=== PATIENT | female | born 1995 | race African-American/Black ===

== ENCOUNTER → 2018-10-15 | Outpatient (CLI) | payer OTHER, MEDICAID, SELFPAY ==
[2018-09-04 15:09] VITALS: BMI 29.7
--- NOTE | 2018-10-15 12:17 | US_ITS ---
STUDY: ULTRASOUND TRANSVAGINAL CLINICAL: Female, 23 years old. Pelvic pain and irregular cycles. TECHNIQUE: Transvaginal COMPARISON: January 19, 2017 FINDINGS: Normal uterine size measuring 6.7 cm in maximal craniocaudal dimension. There are no myometrial masses. Normal endometrial thickness measuring 6.2 mm. There are no endometrial masses, and there is no fluid in the endometrial cavity. Normal uterine cervix. Normal right ovary, measuring 3.0 x 1.7 x 3.4 cm. There are peripherally located subcentimeter cysts. Normal left ovary, measuring 3.4 x 2.4 x 2.1 cm. There are peripherally located subcentimeter cysts. There is no free fluid in the pelvis. US/Transvaginal Non- IMPRESSION: Peripherally located subcentimeter cysts within the ovaries, in the appropriate clinical setting may be secondary to polycystic ovarian disease. Electronically Signed: Carolyn Lawson MD at 16:54 EDT Tel , Service support ,
--- NOTE | 2018-10-15 12:17 | US_ITS ---
STUDY: ULTRASOUND TRANSVAGINAL CLINICAL: Female, 23 years old. Pelvic pain and irregular cycles. TECHNIQUE: Transvaginal COMPARISON: January 19, 2017 FINDINGS: Normal uterine size measuring 6.7 cm in maximal craniocaudal dimension. There are no myometrial masses. Normal endometrial thickness measuring 6.2 mm. There are no endometrial masses, and there is no fluid in the endometrial cavity. Normal uterine cervix. Normal right ovary, measuring 3.0 x 1.7 x 3.4 cm. There are peripherally located subcentimeter cysts. Normal left ovary, measuring 3.4 x 2.4 x 2.1 cm. There are peripherally located subcentimeter cysts. There is no free fluid in the pelvis. US/Pelvic (Non ) IMPRESSION: Peripherally located subcentimeter cysts within the ovaries, in the appropriate clinical setting may be secondary to polycystic ovarian disease. Electronically Signed: Carolyn Lawson MD at 16:54 EDT Tel , Service support ,
== END | disposition home or self-care (01) ==
PROVIDERS: Family Provider Family Medicine; PCP Family Medicine; Referring Provider Obstetrics & Gynecology; Visit Provider Obstetrics & Gynecology
DX: G89.29 Other chronic pain (principal); R10.2 Pelvic and perineal pain
CPT/HCPCS: 76830; 76856; 93976

== ENCOUNTER 2018-11-14 12:15 | Day surgery (SDC) | payer OTHER, MEDICAID, SELFPAY ==
[2018-09-04 15:09] VITALS: BMI 29.7
[2018-11-04 16:18] VITALS: BMI 29.7
--- NOTE | 2018-11-06 05:30 | HP.PCM_ITS ---
- Problem List (1) Irregular menses Status: Acute (2) Vaginal burning Status: Acute (3) Chronic pelvic pain in female Status: Chronic Comment: failed depo provera and flexeril. discussed options and plan TVH BS History and Physical Date of Admission: 11/14/18 ADDENDUM Addendum entered and electronically signed by Jane Jj MD 11/05/18 04:51: Assessment & Plan Problems 1. Chronic pelvic pain in female R10.2; G89.29 failed depo provera and flexeril. discussed options and plan TVH BS 2. Irregular menses N92.6 Plan - Jane Jj MD discussed options for patient including laparoscopic evaluation but due to quality and persistence of pain despite hormonal therapy, recommend proceeding with definitive treatment with TVH BS. patient agrees and understands permanence, she has already had sterilization for 3 years and has no regrets about this and neither does her partner. discussed surgical risks including risks of anesthesia, infection, bleeding, injury to bowel, bladder or blood vessels, and patient wishes to proceed with surgery. 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 Is patient in pain?: No Allergies Penicillins Allergy (Verified 11/04/18 15:25) Hives Medications medroxyprogesterone 150 mg/mL intramuscular suspension 150 mg IM [id number] #1 ml 09/04/18 [Rx Confirmed 11/04/18] cyclobenzaprine 10 mg tablet 10 mg PO TID PRN #30 tab 10/09/18 [Rx Confirmed 11/04/18] Is last menstrual period known: No Post menopausal: No Patient : No : No PFSH Surgical History History of open heart surgery (Acute) History of tubal ligation (Acute) Family History (Updated 09/04/18 @ 14:47 by Magy Germain) Other Breast cancer Social History (Updated 11/05/18 @ 04:50 by Jane Jj MD) household members: spouse housing: house number of children: 2 current occupational status: unemployed current occupational exposures/hazards: No pets and animals: Yes history of recent travel: No Smoking Status: Never smoker second hand exposure: No alcohol intake: current alcohol intake frequency: holidays/special occasions only Alcohol type: beer substance use type: does not use caffeine: No what type of physical activity do you participate in: walking frequency: 5-6 times per week duration: 45-60 minutes/day seatbelt use: always do you feel safe at home: Yes additional social history: [employer] at [employer] Patient does not work HPI pre op soap/folder: Details: STEVE PINEDA is a 23 year old who presents for preop visit for pelvic pain and dyspareunia. she will have pain with intercourse and cramping for days aftwards. she has severe cramping and bloating with cycles denies any pelvic infections in the past. she is having so much pain most days and it interferes with quality of life and quality of relationship. Pregancy History 2 Elective abortions Hx Para 2 Spontaneous abortions Hx # Term Pregnancies Ectopic pregnancies Hx # Pregnancies Multiple births # of living children 2 Past Pregnancies Del. Date Name GA/Weeks Outcome Route Bth Weight Gen Labor Lgth Anesthesia Del Locatn Provider FOB 01/12/14 Chris 38 live - full term 6lbs 1oz Female epidural [place] 11/22/15 Florina 38 live - full term 6lbs Fema le epidural WC DOUG Delivery Date: 01/12/14 On 09/06/17 @ 12:57 Hayley Escalante Pre term labor Delivery Date: 11/22/15 On 09/06/17 @ 12:59 Hayley Escalante HTN ROS Const Constitutional: Denies fatigue, fever(s), headache(s), increased appetite, poor appetite, weight gain or weight loss ENT ENT: Denies dry mouth Cardio Card: Denies chest pain Resp Resp: Denies cough or dyspnea GI GI: Reports as per HPI; denies abdominal pain, constipation, nausea or vomiting : Reports as per HPI; denies difficulty urinating, painful urination, blood in urine, nipple discharge, pelvic pain, urinary frequency, urinary incontinence, urinary hesitancy, urinary urgency, vaginal discharge, vaginal dryness, vaginal odor, vaginal itching or other Musc Musc: Denies joint pain, back pain or muscle weakness Skin Skin/Breast: Denies hair loss, change in hair, dry skin, breast lump, breast pain, breast skin changes or nipple discharge Neuro Neuro: Reports system reviewed and no additional complaints, except as docu Psych Psych: Reports system reviewed and no additional complaints, except as docu Endo Endo: Denies cold intolerance, excessive sweating, heat intolerance or increased thirst Abundio/Lymph Hematologic/Lymphatic: Denies easy bleeding, Denies easy bruising, Denies enlarged lymph nodes Exam Const General: cooperative, healthy appearing, comfortable, no acute distress, well developed Nutritional Appearance: average body habitus Orientation: alert [facility] Head: normal to inspection, normocephalic Ears: hearing grossly normal bilaterally, external ears normal Nose: external nose normal, nares normal Face and sinus: normal facial exam Neck Neck: normal visual inspection, no lymphadenopathy, trachea midline Thyroid: thyroid normal Chest Chest palpation & inspection: normal inspection of the chest Resp Effort & Inspection: normal respiratory effort Auscultation: clear to auscultation bilaterally Cardio Rate: regular rate Rhythm: regular rhythm GI Inspection: normal to inspection, non-distended Palpation: soft, no hepatosplenomegaly Musc Other: gross motor intact no deficits, full bilateral strength Skin General: no rashes or lesions noted Neuro General: alert, awake, moves all extremities, no focal motor deficits Motor: muscle tone normal throughout Extrem General: normal to inspection, no pedal edema Psych Appearance: grossly normal Mental Status: mental status grossly normal Affect: normal affect Speech and Movement: speech and movement normal Assessment & Plan Problems 1. Chronic pelvic pain in female R10.2; G89.29 failed depo provera and flexeril. discussed options and plan TVH BS 2. Irregular menses N92.6 Plan discussed options for patient including laparoscopic evaluation but due to quality and persistence of pain despite hormonal therapy, recommend proceeding with definitive treatment with TVH BS. patient agrees and understands permanence, she has already had sterilization for 3 years and has no regrets about this and neither does her partner. discussed surgical risks including risks of anesthesia, infection, bleeding, injury to bowel, bladder or blood vessels, and patient wishes to proceed with surgery. Coding Level of Care Code Off vis,est,level 4 Diagnoses Chronic pelvic pain in female R10.2; G89.29 Irregular menses N92.6
[2018-11-14] VITALS (15 sets, daily range): BP systolic 101–130; BP diastolic 46–79; PULSE 88–107; RESP 12–16; TEMP 35.8–37; O2SAT 98–110; BMI 33.1
[2018-11-14] MEDS: Lactated Ringers 1,000 ML 40 ML IV (07:00)
[2018-11-14] MEDS: Lactated Ringers 1,000 ML 70 ML IV ×2 (07:00→17:26)
[2018-11-14] MEDS: Gabapentin 600 MG Tablet PO (07:00)
[2018-11-14] MEDS: dexAMETHasone 10 MG/ML Vial 8 MG IV (07:00)
[2018-11-14 12:41] LABS: Internal QC Validated? YES +Cl - CLEAR BKGD; Pregnancy, Urine Negative Negative
--- NOTE | 2018-11-14 12:46 | EKG12_ITS ---
Test Reason : PRE OP Blood Pressure : / mmHG Vent. Rate : 084 BPM Atrial Rate : 084 BPM P-R Int : 148 ms QRS Dur : 080 ms QT Int : 352 ms P-R-T Axes : 053 020 044 degrees QTc Int : 415 ms Normal sinus rhythm Normal ECG When compared with ECG of 09-NOV-2015 18:05, No significant change was found Confirmed by MEETA GRIFFIN, JOHN ([id number]), manager editorial OSBALDO SEXTON ([id number]) on 11/19/2018 9:07:23 AM Referred By: Jane Jj Confirmed By:QUYNH TIM MD
[2018-11-14 12:47] LABS: Hematocrit 38.5 % (37-47); Hemoglobin 12.4 g/dL (12.0-15.0); Mean Corp Hgb Conc 32.2 g/dL (32-36); Mean Corpuscular Hgb 26.2 pg (27.0-32.0); Mean Corpuscular Volume 81.4 fL (81-99); Mean Platelet Vol. 8.7 fl (6.2-12.0); Platelet Count 303 K/mm3 (150-450); RBC Distribution Width CV 12.9 % (11.6-14.6); RBC Distribution Width SD 38.2 fl (35.1-43.9); Red Blood Count 4.73 M/mm3 (4.2-5.4); White Blood Count 7.4 K/mm3 (4.4-11.0)
--- NOTE | 2018-11-14 13:00 | HYST_PTH ---
PATIENT: STEVE PINEDA [place] [facility] [place][id number] AGE/SX: 23/F ROOM: RE11/14/[address]: Dr. Jane Jj MD : 1995 BED: DIS: 11/15/2018 SPEC #: [id number] RECD: 11/14/18 15:29 STATUS: PAKO TONE #: [id number] MARCELO: 11/14/18 13:[address]: Jane Jj DEPT: SURGICAL PATHOLOGY RECD BY: Hayden Ward ENTERED: 11/15/18 08:32 SP TYPE: HYSTERECT OTHR DR: Dr. Andrzej Catherine MD Tissues: Uterus, NOS Procedures: Surgery Specimen Level V HEADER OPERATION: Vaginal hysterectomy PRE-OP DIAGNOSIS: Chronic pelvic pain R102, G89.29; irregular menses N92.6 TISSUE SUBMITTED: Uterus and cervix MICROSCOPIC DIAGNOSIS Uterus, hysterectomy: Cervix - mild chronic inflammation. Endometrium - weakly proliferative endometrium * stromal hyperplasia consistent with exogenous hormonal effect with degenerative change. AM:edward 11/18/18 COMMENT Case has been reviewed in consultation with Dr. Cornell who concurs with the above diagnosis. IDC:SJ MICROSCOPIC DESCRIPTION Slides are reviewed. GROSS DESCRIPTION Received in fixative is one container labeled with the patient's name and designated uterus. The specimen consists of a uterus with attached cervix without fallopian tubes and ovaries measuring 8.5 x 4.5 x 3.3 cm and weighing 49 gm. The ectocervix is grossly unremarkable. The cervical os is oval in contour. The endocervical canal measures 3.3 cm in length and is grossly unremarkable. The triangular endometrial cavity measures 3.2 x 2.4 cm. The endometrium is light delgado, velvety and glistening and measures up to 0.2 cm in thickness. The myometrium measures 1.5 cm in average thickness and is free of mass lesions. Head [employer] Teacher sections are submitted in six cassettes as follows: 1 - anterior cervix, 2??posterior cervix, 3 & 4 - anterior uterine wall, 5 & 6 - posterior uterine wall. / DAISY:edward 11/15/18 TC:3 CPT: 57381
[2018-11-14 13:01] LABS: Anion Gap 5 (5-15); BUN 10 mg/dL (7-18); BUN/Creat Ratio 10.9 RATIO (10-20); Calcium,Total 9.1 mg/dL (8.5-10.1); Chloride 106 mmol/L (98-107); Creatinine, Serum 0.92 mg/dL (0.55-1.02); EST Glomerular Filtration Rate 80 mL/min (>60); Est Glom Filt Rate - Afr Amer 97 mL/min (>60); Estimated Creatinine Clearance 74.58 ml/min; Glucose 76 mg/dL (74-106); Potassium 3.8 mmol/L (3.5-5.1); Sodium Level 139 mmol/L (136-145)
[2018-11-14] MEDS: Acetaminophen 500 MG Tablet 1000 MG PO ×3 (13:10→23:23)
[2018-11-14] MEDS: Phenazopyridine 95 MG Tablet 190 MG PO (13:10)
[2018-11-14] MEDS: Celecoxib 200 MG Capsule 400 MG PO (13:11)
[2018-11-14] MEDS: Scopolamine 1mg/72hr Patch 1 PATCH TRANSDERM. (13:11)
[2018-11-14] MEDS: Magnesium Sulfate 4gm/100mL 4 GM/100 ML IV.SOLN. IV (13:12)
[2018-11-14] MEDS: Enoxaparin 40 MG/0.4 ML Syringe SC (13:13)
[2018-11-14] MEDS: Vasopressin 20 UNITS/ML Vial (14:11)
[2018-11-14 14:31] LABS: Bedside Glucose 70 mg/dL (70-110)
--- NOTE | 2018-11-14 14:55 | PCM.OPRPT ---
Problem List (1) Irregular menses Status: Acute (2) Vaginal burning Status: Acute (3) Chronic pelvic pain in female Status: Chronic Comment: failed depo provera and flexeril. discussed options and plan TVH BS Report of Operation Date of Procedure: 11/14/18 Pre-Operative Diagnosis: chronic pelvic pain Post-Operative Diagnosis: same Surgery/Procedure Performed:: tvh Description of Surgical Findings:: normal uterus ovaries financial planning consultant: Korin Arellano Type of Anesthesia:: General Special Medications: none Specimen's removed: uterus Drains: cano Estimated Blood Loss (mL): 100 Fluids Replaced: 200 crystalloid Description of Procedure: Patient was taken to the operating room and was placed under general anesthesia was prepped and draped in normal sterile fashion in the dorsal lithotomy position. Preoperative antibiotics and SCDs and Cano catheter was placed inside the bladder. Weighted speculum was placed in the vagina and the anterior and posterior lip of the cervix was grasped with 2 Nathaniel clamps and circumferentially injected with dilute vasopressin. A circumferential incision was made with a scalpel and the posterior cul-de-sac was entered into sharply and a longneck speculum was placed. The anterior cul-de-sac was also dissected down and entered into sharply and the uterosacral ligaments were clamped cut and suture ligated bilaterally followed by the cardinal ligaments which were Clamped cut and suture ligated bilaterally with 0 Monocryl. The uterus serially descended and progressive bites were taken bilaterally up to the level of the utero-ovarian ligament bilaterally which was clamped transected and double ligated with 0 Monocryl suture and 0 Vicryl free tie. Bilateral ovaries were well visualized and noted be within normal limits. Excellent hemostasis was noted. Posterior peritoneum was reapproximated with 2-0 Vicryl and a modified Moreland stitch was placed through the posterior vaginal cuff and bilateral uterosacral ligaments across the posterior cul-de-sac skimming along to provide apical support to the vagina. The vagina was closed with [id number] 0 Vicryl pop offs including the posterior and anterior peritoneum in the reapproximation. Excellent hemostasis was noted. All instruments removed from the vagina clear urine was noted at the end of the procedure and patient was awoken and taken recovery in stable condition. Grafts/Implants Used: none - Complications none - Admit VTE Documentation VTE Present on Admission: No VTE Mechan Device Prophylaxis: SCD's Multi Select Codes - Urinary/Genital Urinary/Genital CPT Codes: 72437 TVH <250 gr uterus
[2018-11-14 15:36] LABS: Bedside Glucose 125 mg/dL (70-110)
--- NOTE | 2018-11-14 15:40 | SUR.PHASEI ---
OXygen mask on @ 1515 can be taken off at 1715 Blood Glucose 125 in PACU
[2018-11-14] MEDS: 0.9% NaCl Peripheral Flush Adult/Peds IV (17:26)
[2018-11-14] MEDS: Ketorolac 30 MG/ML Syringe IV ×2 (17:26→23:23)
[2018-11-14 17:40] LABS: Absolute Lymphocyte Count 1.03 X10^3/uL (0.83-4.51); Basophil# 0.02 X10^3/uL; Basophil% 0.2 % (0-1); Eosinophil# 0.01 X10^3/uL; Eosinophils% 0.1 % (0-5); Hematocrit 36.6 % (37-47); Hemoglobin 11.9 g/dL (12.0-15.0); Lymphocyte # 1.03 X10^3/ul (4.0); Lymphocyte % 8.4 % (19-41); Mean Corp Hgb Conc 32.5 g/dL (32-36); Mean Corpuscular Volume 80.1 fL (81-99); Mean Platelet Vol. 8.9 fl (6.2-12.0); Monocyte# 0.13 X10^3/uL; Monocyte% 1.1 % (0-10); NRBC Flagged by Analyzer 0 % (0-5); Neutrophil % 89.9 % (47-70); Platelet Count 260 K/mm3 (150-450); RBC Distribution Width CV 12.8 % (11.6-14.6); RBC Distribution Width SD 36.5 fl (35.1-43.9); Red Blood Count 4.57 M/mm3 (4.2-5.4); White Blood Count 12.2 K/mm3 (4.4-11.0)
[2018-11-14] MEDS: Ondansetron ODT 4 MG Tablet PO (20:11)
[2018-11-14] MEDS: oxyCODONE 5 MG Tablet PO (20:11)
[2018-11-14] MEDS: Docusate Sodium 100 MG Capsule PO (23:23)
[2018-11-15] MEDS: Acetaminophen 500 MG Tablet 1000 MG PO ×2 (05:18→13:32)
[2018-11-15] MEDS: Ketorolac 30 MG/ML Syringe IV ×2 (05:18→12:20)
[2018-11-15 05:22] VITALS: BP 110/67; PULSE 91; RESP 16; TEMP 36.7; O2SAT 95
[2018-11-15 06:21] LABS: Hemoglobin 11.8 g/dL (12.0-15.0); Mean Corp Hgb Conc 31.9 g/dL (32-36); Mean Corpuscular Hgb 25.5 pg (27.0-32.0); Mean Corpuscular Volume 80.1 fL (81-99); Mean Platelet Vol. 9.3 fl (6.2-12.0); Platelet Count 305 K/mm3 (150-450); RBC Distribution Width CV 13.3 % (11.6-14.6); RBC Distribution Width SD 38.3 fl (35.1-43.9); Red Blood Count 4.62 M/mm3 (4.2-5.4); White Blood Count 9.3 K/mm3 (4.4-11.0)
[2018-11-15 07:54] VITALS: BP 109/63; PULSE 97; RESP 16; TEMP 36.7; O2SAT 97
[2018-11-15] MEDS: Docusate Sodium 100 MG Capsule PO (10:27)
[2018-11-15] MEDS: Enoxaparin 40 MG/0.4 ML Syringe SC (10:27)
--- NOTE | 2018-11-15 11:51 | PCM.PN.OB ---
Subjective: doing well pain controlled - Physical Exam General: Alert, Oriented x3 Vital Signs Temp Pulse Resp BP Pulse Ox 98.0 F 97 16 109/63 97 11/15/18 07:54 11/15/18 07:54 11/15/18 07:54 11/15/18 07:54 11/15/18 07:54 Oxygen Flow Rate (L/min) 6 Oxygen Delivery Method Room Air Weight: 181 lb 3.52 oz Body Mass Index (BMI) 33.1 Finger Stick Blood Glucose 125 Intake and Output for Last 24 Hours 11/13/18 11/14/18 11/15/18 23:59 23:59 23:59 Intake Total 1063.83 / 1063.83 980.67 / 980.67 Output Total 240 / 240 2200 / 2200 Balance 823.83 / 823.83 -1219.33 / -1219.33 Laboratory Tests Past 24 Hrs 11/14/18 11/14/18 11/14/18 12:21 12:31 12:31 WBC 7.4 RBC 4.73 Hgb 12.4 Hct 38.5 MCV 81.4 MCH 26.2 L MCHC 32.2 RDW Std Deviation 38.2 RDW Coeff of Jd 12.9 Plt Count 303 MPV 8.7 Immature Gran % (Auto) Neut % (Auto) Lymph % (Auto) [place] % (Auto) Eos % (Auto) Baso % (Auto) Absolute Neuts (auto) Absolute Lymphs (auto) Nucleated RBC % Sodium 139 Potassium 3.8 Chloride 106 Carbon Dioxide 28.0 Anion Gap 5 BUN 10 Creatinine 0.92 Estim Creat Clear Calc 74.58 Est GFR (MDRD) Af Amer 97 Est GFR (MDRD) Non-Af 80 BUN/Creatinine Ratio 10.9 Glucose 76 Calcium 9.1 Urine Test Negative Blood Type Antibody Screen 11/14/18 11/14/18 11/15/18 13:12 17:30 05:10 WBC 12.2 H 9.3 RBC 4.57 4.62 Hgb 11.9 L 11.8 L Hct 36.6 L 37.0 MCV 80.1 L 80.1 L MCH 26.0 L 25.5 L MCHC 32.5 31.9 L RDW Std Deviation 36.5 38.3 RDW Coeff of Jd 12.8 13.3 Plt Count 260 305 MPV 8.9 9.3 Immature Gran % (Auto) 0.300 Neut % (Auto) 89.9 H Lymph % (Auto) 8.4 L [place] % (Auto) 1.1 Eos % (Auto) 0.1 Baso % (Auto) 0.2 Absolute Neuts (auto) 11.0 H Absolute Lymphs (auto) 1.03 Nucleated RBC % 0 Sodium Potassium Chloride Carbon Dioxide Anion Gap BUN Creatinine Estim Creat Clear Calc Est GFR (MDRD) Af Amer Est GFR (MDRD) Non-Af BUN/Creatinine Ratio Glucose Calcium Urine Test Blood Type O POSITIVE Antibody Screen NEGATIVE POC Glucose 11/14/18 11/14/18 15:29 12:53 POC Glucose 125 H 70 Medical Necessity - Tobacco Use Smoking Status: Never smoker Tobacco Use: Non-smoker Assessment/Plan All Active Problems (Last Reviewed 11/04/18 @ 15:26 by Elizabeth Mcdonald) Vaginal burning (Acute) Irregular menses (Acute) doing well postop tvh or home
--- NOTE | 2018-11-15 11:53 | DCINST_ITS ---
Discharge Diet: No Restrictions Discharge Activity: Return to Normal Activity, May Not Drive, May Shower May resume sexual activity in: 6-8 weeks Call your doctor if your incision/area has: Continuous Slow Oozing, Sudden Increased Bleeding, Increased Pain/ Swelling, Increased Redness, Foul Smelling Discharge Call your doctor if you observe: Fever of 101 or Higher, Inability to urinate, Inability to have a bowel movement, Using more than one pad per hour Allergies/Adverse Reactions: Allergies Penicillins Allergy (Verified 11/07/18 14:53) Hives Medications to take at Discharge cyclobenzaprine 10 mg tablet 10 mg PO TID PRN #30 tab 10/09/18 Ibuprofen [Motrin] 600 mg PO Q6H PRN PRN #30 tab 11/14/18 Oxycodone HCl/Acetaminophen [Percocet 5-325] 1 - 2 tab PO Q4H PRN PRN 7 Days #15 tab 11/14/18 The following prescriptions were given: Ibuprofen [Motrin] 600 mg PO Q6H PRN PRN #30 tab PRN Reason: Pain Transmission Status: Received by [facility] Oxycodone HCl/Acetaminophen [Percocet 5-325] 1 - 2 tab PO Q4H PRN PRN 7 Days #15 tab PRN Reason: Pain Transmission Status: Received by [facility] Orders to be completed after discharge: Type & Screen Time Frame: 11/07/18, Facility: [facility], Location: [facility] Primary Care Physician: Andrzej Catherine MD [Primary Care Provider] - Test Results: Test results from this visit will be discussed in further detail at your follow- up appointment, if applicable. Please Follow Up With: Jane Jj MD - [phone]
[2018-11-15] MEDS: 0.9% NaCl Peripheral Flush Adult/Peds IV (12:25)
[2018-11-15 12:33] VITALS: BP 126/66; PULSE 98; RESP 16; TEMP 36.8; O2SAT 98
== END 2018-11-15 14:42 | disposition home or self-care (01) ==
LOC: SDC 12:16 → AC 12:17 → MS3 15:28
PROVIDERS: Anesthesiology; Family Provider Family Medicine; PCP Family Medicine; Referring Provider Obstetrics & Gynecology; Visit Provider Obstetrics & Gynecology
PROC: (CPT 58260; principal; 2018-11-14 12:40)
DX: N72 Inflammatory disease of cervix uteri (principal); N85.00 Endometrial hyperplasia, unspecified; G89.29 Other chronic pain; R10.2 Pelvic and perineal pain; Z86.2 Personal history of diseases of the blood and blood-forming organs and certain disorders involving the immune mechanism
CPT/HCPCS: 58260; 36415; 80048; 81025; 82962; 85025; 85027; 86850; 86900; 86901; 88307; 93005; J7120; A4216; J2405

== ENCOUNTER → 2019-02-20 15:29 | Outpatient (CLI) | payer MEDICAID, SELFPAY ==
[2019-02-20 14:36] VITALS: BMI 34.0
[2019-02-20 17:41] LABS: T4 Free Direct 0.97 ng/dL (0.76-1.46); Thyroid Stim Hormone (TSH) 0.66 uIU/mL (0.358-3.74)
== END ==
PROVIDERS: Family Provider Family Medicine; PCP Family Medicine; Referring Provider Obstetrics & Gynecology; Visit Provider Obstetrics & Gynecology
DX: E01.0 Iodine-deficiency related diffuse (endemic) goiter (principal)
CPT/HCPCS: 36415; 84439; 84443

== ENCOUNTER → 2020-04-16 10:05 | Outpatient (CLI) | payer BC, MEDICAID, SELFPAY ==
[2020-03-30 13:42] VITALS: BMI 34.7
--- NOTE | 2020-04-16 10:08 | MRI_ITS ---
STUDY: BILATERAL BREAST MR WITHOUT AND WITH CONTRAST REASON FOR EXAM: Female, 24 years old. Breast pain, FAMILY H/O BREAST CA, SCREENING TECHNIQUE: Multi-sequence multi-echo imaging of both breasts was performed with a dedicated breast coil. T1-weighted and T2-weighted images were performed before the administration of contrast. T1-weighted images were also performed after the administration of IV DOTAREM 17 CC without complications. COMPARISON: No comparison studies. FINDINGS: RIGHT BREAST: The breast tissue is heterogeneously dense with minimal background enhancement. MRI signal characteristics of a simple cyst at 9 o''clock position of the right breast. This lesion measures a millimeter. There are smaller adjacent cysts. Simple cyst of the 12 o''clock position of the right breast. No enhancement. LEFT BREAST: The breast tissue is heterogeneously dense with minimal background enhancement. Cystic area in the outer aspect of the breast. It does not enhance and corresponds with simple cyst. This measures 6 mm. There are no enlarged or abnormal lymph nodes. There is no abnormality in the visualized regions of the chest or liver. MRI/Breast Bilateral W/O and W IMPRESSION: MRI Breast findings suggest bilateral breast cysts. CATEGORY: BIRADS Category 2: Benign. A letter regarding these results will be sent to the patient by the facility within 30 days. Electronically Signed: Neil Goode MD at 13:08 EST , Service support ,
== END ==
PROVIDERS: PCP Family Medicine; Referring Provider Obstetrics & Gynecology; Visit Provider Obstetrics & Gynecology
DX: N64.59 Other signs and symptoms in breast (principal)
CPT/HCPCS: 77049; A9575; A4216; C8908

== ENCOUNTER → 2020-10-26 09:15 | Outpatient (CLI) | payer BC, MEDICAID, SELFPAY ==
[2020-10-21 13:11] VITALS: BMI 35.3
--- NOTE | 2020-10-26 09:16 | US_ITS ---
STUDY: ULTRASOUND BREAST - RIGHT REASON FOR EXAM: Female, 25 years old. Palpable lump in the right breast. TECHNIQUE: Axial and longitudinal images of the RIGHT breast were performed with a high resolution ultrasound transducer. # OF IMAGES: 30 COMPARISON: Comparison is made with prior mammogram done earlier today. FINDINGS: RIGHT Breast: The palpable abnormality corresponds to 1.4 cm x 1.3 cm x 0.8 cm cyst at the 9 o''clock position of the breast 4 cm from the nipple. It is also evidence of a 4 mm x 5 mm x 3 mm cyst at the 9 o''clock position of the breast at 3 cm from nipple. There is a 5.8 mm x 3.4 mm x 3 mm well-defined hypoechoic solid nodule at the 9 o''clock position of the breast at 3 cm from the nipple. US/Breast Limited Unilateral IMPRESSION: The palpable abnormality corresponds to a 1.4 cm x 1.3 cm x 0.8 cm cyst at the 9 o''clock position of the breast at 4 cm from the nipple. 5.8 mm x 3.4 mm x 3 mm well-defined hypoechoic solid nodule at the 9 o''clock position of the breast at 3 cm from nipple. This may represent a small fibroadenoma. A four-month follow-up sonogram is recommended. ASSESSMENT CATEGORY: BIRADS Category 3: Probably Benign - Short-Interval Follow-up Suggested. A letter regarding these results will be sent to the patient by the facility within 30 days. Electronically Signed: Gaurav Etienne MD at 12:22 EDT , Service support ,
--- NOTE | 2020-10-26 09:18 | BI_ITS ---
MAMMOGRAPHY - BILATERAL DIAGNOSTIC REASON FOR EXAM: Female, 25 years old. Right breast lump. Occasional right breast tenderness. PERTINENT HISTORY: Grandmother with breast cancer. Aunt with breast cancer. TECHNIQUE: Digital bilateral breast suraj (3D mammographic acquisition) in the CC and MLO projections. 2-D mediolateral oblique (MLO) and craniocaudad (CC) views of both breasts were obtained. CAD: Full Field Digital Mammography with Computer Added Detection was performed. COMPARISON: Comparison is made with prior MRI of the breast dated 04/16/2020. FINDINGS: Breast Composition: The breasts are extremely dense, which lowers the sensitivity of mammography. There are no dominant masses or suspicious calcifications. No other significant abnormalities are identified. BI/DIAG MAMM W/CAD, BILAT IMPRESSION: Negative diagnostic mammogram. With the patient''s history of a palpable lump in the right breast, correlation with ultrasound is recommended. ASSESSMENT CATEGORY: BIRADS Category 0: Incomplete. Need additional imaging evaluation. A letter regarding these results will be sent to the patient by the facility within 30 days. Approximately 10% of breast cancers are not detected by mammography. A normal mammogram should not delay biopsy of a clinically suspicious abnormality. Electronically Signed: Gaurav Etienne MD at 10:24 EDT , Service support ,
== END ==
PROVIDERS: PCP Family Medicine; Referring Provider Obstetrics & Gynecology; Visit Provider Obstetrics & Gynecology
DX: N63.10 Unspecified lump in the right breast, unspecified quadrant (principal); Z91.89 Other specified personal risk factors, not elsewhere classified
CPT/HCPCS: 76642; 77062; 77066; G0279

== ENCOUNTER 2021-04-25 14:05 | Outpatient (CLI) | payer OTHER, MEDICAID, SELFPAY ==
[2021-04-25 15:09] LABS: T4 Free Direct 1.07 ng/dL (0.76-1.46); Thyroid Stim Hormone (TSH) 1.09 uIU/mL (0.358-3.74)
== END 2021-04-25 23:59 | disposition home or self-care (01) ==
PROVIDERS: PCP Family Medicine; Referring Provider Obstetrics & Gynecology; Visit Provider Obstetrics & Gynecology
DX: E01.0 Iodine-deficiency related diffuse (endemic) goiter (principal)
CPT/HCPCS: 36415; 84439; 84443

== ENCOUNTER 2021-05-02 09:27 | Outpatient (CLI) | payer OTHER, MEDICAID, SELFPAY ==
--- NOTE | 2021-05-02 09:32 | US_ITS ---
STUDY: ULTRASOUND BREAST - RIGHT REASON FOR EXAM: Female, 25 years old. Four-month follow-up examination. TECHNIQUE: Axial and longitudinal images of the RIGHT breast were performed with a high resolution ultrasound transducer. # OF IMAGES: 14 COMPARISON: Comparison is made with prior ultrasound examination of the right breast in 10/26/2020. FINDINGS: RIGHT Breast: There is a 1.5 cm x 1.3 cm x 1 cm cyst at the 10 o''clock position of the breast at 6 cm from nipple. A 0.4 cm x 0.5 cm x 0.3 cm cyst is seen at the 9 o''clock position of the breast at 4 cm from the nipple. Stable 5 mm x 5 mm x 3 mm well-defined hypoechoic nodule is seen at the 9 o''clock position breast at 3 cm from the nipple. This is unchanged. A repeat sonogram in 4 months recommended. US/Breast Complete Unilateral IMPRESSION: Stable examination. ASSESSMENT CATEGORY: BIRADS Category 3: Probably Benign - Short-Interval Follow-up Suggested. A letter regarding these results will be sent to the patient by the facility within 30 days. Electronically Signed: Gaurav Etienne MD at 13:48 EST ,
--- NOTE | 2021-05-02 09:32 | US_ITS ---
STUDY: THYROID ULTRASOUND REASON FOR EXAM: Female, 25 years old. Thyromegaly TECHNIQUE: Ultrasound evaluation of the thyroid was performed with real-time and static ness-scale imaging. COMPARISON: None. FINDINGS: RIGHT LOBE: The right lobe of the thyroid gland is enlarged and measures 5.6 cm x 2 cm x 1.8 cm. There is a heterogeneous echotexture. There is a 6 mm x 5 mm x 3 mm cyst in the mid lower pole. A similar-appearing cyst measuring 5 mm x 4 mm x 2 mm is seen as well. LEFT LOBE: The left lobe of the thyroid gland is enlarged and measures 5.3 cm x 1.8 cm x 1.6 cm. There is a heterogeneous echotexture. 3 cysts are seen within the left lobe. The largest cyst measures 6 mm x 5 mm x 3 mm. ISTHMUS: The isthmus measures 3 mm. There is a 9 mm x 8 mm x 6 mm solid and cystic nodule in the inferior aspect of the left side of the isthmus. The regional lymph nodes are normal. US/Thyroid IMPRESSION: Heterogeneous appearance of the thyroid gland. Small cysts are seen in both lobes. Thyroid enlargement. Electronically Signed: Gaurav Etienne MD at 13:50 EST ,
== END 2021-05-02 23:59 | disposition home or self-care (01) ==
LOC: OPBI 09:27
PROVIDERS: PCP Family Medicine; Visit Provider Obstetrics & Gynecology
DX: E01.0 Iodine-deficiency related diffuse (endemic) goiter (principal); Z91.89 Other specified personal risk factors, not elsewhere classified
CPT/HCPCS: 76536; 76641

== ENCOUNTER → 2021-08-30 | Outpatient (CLI) | payer OTHER, MEDICAID, SELFPAY ==
--- NOTE | 2021-08-30 14:53 | US_ITS ---
STUDY: ULTRASOUND BREAST - RIGHT REASON FOR EXAM: Female, 25 years old. Short interval follow-up TECHNIQUE: Axial and longitudinal images of the RIGHT breast were performed with a high resolution ultrasound transducer. # OF IMAGES: 30 COMPARISON: 05/02/2021 FINDINGS: RIGHT Breast: Heterogeneous background echotexture. : At 10 o''clock, 6 cm from nipple, there is no change in the 15 mm oval parallel circumscribed anechoic mass with posterior enhancement consistent with a cyst. At 9 o''clock, 3 cm from nipple, ultrasound demonstrates no change in the 2 separate 5 mm oval parallel circumscribed markedly hypoechoic mass with posterior enhancement likely consistent with another cyst. US/Breast Limited Unilateral IMPRESSION: No change in fibrocystic change. ASSESSMENT CATEGORY: BIRADS Category 2: Benign. A letter regarding these results will be sent to the patient by the facility within 30 days. Electronically Signed: Kameron Rivas MD at 17:42 EDT ,
== END | disposition home or self-care (01) ==
LOC: OPUS 14:51
PROVIDERS: PCP Family Medicine; Visit Provider Obstetrics & Gynecology
DX: R92.8 Other abnormal and inconclusive findings on diagnostic imaging of breast (principal); Z91.89 Other specified personal risk factors, not elsewhere classified
CPT/HCPCS: 76642

== ENCOUNTER 2021-10-31 21:27 | Emergency (ER) | payer OTHER, MEDICAID, SELFPAY ==
[2021-10-31 21:28] VITALS: BP 147/87; PULSE 104; RESP 17; TEMP 36.7; O2SAT 100; BMI 36.8
--- NOTE | 2021-10-31 21:35 | EKG12_ITS ---
Test Reason : DYSRHYTHMIA Blood Pressure : / mmHG Vent. Rate : 100 BPM Atrial Rate : 100 BPM P-R Int : 146 ms QRS Dur : 084 ms QT Int : 350 ms P-R-T Axes : 054 033 067 degrees QTc Int : 451 ms Normal sinus rhythm Normal ECG Confirmed by CHRISTINE GRIFFIN, NIELS ([id number]), editorial specialist HAYDER VELEZ ([id number]) on 11/02/2021 11:21:54 AM Referred By: JENNIFER Confirmed By:NIELS KING MD
--- NOTE | 2021-10-31 22:03 | CT_ITS ---
STUDY: CT BRAIN WITHOUT CONTRAST REASON FOR EXAM: Female, 26 years old. ms change RADIATION DOSAGE (If Supplied By Facility): CTDIvol = ( 44.99 ) mGy, DLP = ( 745.49 ) mGycm TECHNIQUE: Transaxial CT imaging of the brain was performed without administration of intravenous contrast material. Individualized dose optimization techniques were used for this CT. COMPARISON: No relevant priors. FINDINGS: Normal soft tissue structures. Normal calvarium. Normal size ventricles and extra-axial spaces for the patient''s age. Normal white matter tracts of the cerebral hemispheres. Normal basal ganglia and thalami. Normal brainstem. Normal cerebellum. There is no intracranial hemorrhage. There are no findings of an acute ischemic infarction. Normal visualized paranasal sinuses. CT/Brain/Head without Contrast IMPRESSION: Normal unenhanced CT scan of the brain. Electronically Signed: Igor Echeverria DO at 22:54 EDT ,
--- NOTE | 2021-10-31 22:06 | EX.ED.DYSGE1 ---
HPI History of Present Illness Chief Complaint: Syncope Informant: patient and spouse/S.O. Onset/Context/Timing Onset: Days Context: Gradual Onset Timing: Intermittent Current Severity: Mild Maximum Severity: Mild Narrative Narrative: 26-year-old female history of anxiety. Prior atrial septal cardiac defect repair as a child. Currently being worked up for possible rheumatoid arthritis for which she was started on prednisone. Over the week Mallorie had syncopal events. Was taken to [place] emergency department for [facility]. From there was transferred to [facility]. Was hospitalized and discharged. Started on Topamax on discharge for possible migraine headaches. Significant other is here with her. He states that she has been stuttering and this is in her normal mental status. They deny any falls or trauma. She has had multiple near syncopal events. She has had no recent illness such as fever vomiting, diarrhea, shortness of breath or chest pain. No dysuria. Prior similar symptoms: Yes Recent Illness/Hospitalization: Yes PFSH PFSH Home Medications multivitamin 1 tab PO DAILY 03/30/20 [History Last Taken Unknown] cetirizine 10 mg capsule (Zyrtec) 10 mg PO DAILY PRN 04/25/21 [History Last Taken Unknown] Allergy/AdvReac Type Severity Reaction Status Date / Time Penicillins Allergy Hives Verified 10/17/21 15:41 Family History Other Breast cancer Surgical History History of open heart surgery History of total vaginal hysterectomy (TVH) History of tubal ligation Social History household members: spouse housing: house number of children: 2 current occupational status: unemployed current occupational exposures/hazards: No pets and animals: Yes history of recent travel: No Smoking Status: Never smoker second hand exposure: No alcohol intake: current alcohol intake frequency: holidays/special occasions only Alcohol type: beer substance use type: does not use caffeine: No what type of physical activity do you participate in: walking frequency: 5-6 times per week duration: 45-60 minutes/day seatbelt use: always do you feel safe at home: Yes additional social history: [employer] at [employer] Patient does not work ROS ROS ED ROS Narrative Near syncope. Syncope. Review of Systems ROS Unobtainable: Denies due to encephalopathy Constitutional Constitutional ED: Denies chills or fever(s) Eyes Eyes: Denies blurry vision ENT ENT ED: Denies ear pain Cardiovascular Cardiovascular: Denies chest pain Respiratory/Chest Respiratory/Chest: Denies cough or dyspnea Gastrointestinal Gastrointestinal: Denies abdominal pain, constipation, diarrhea, melena, nausea or vomiting Genitourinary Genitourinary ED: Denies dysuria or hematuria Musculoskeletal Musculoskeletal: Denies arthralgias Integumentary Denies abscess Neurologic Neurologic: Denies headache(s) Psychiatric Psychiatric: Denies anxiety Endocrine Endocrinology: Denies cold intolerance Hematologic/Lymphatic Hematologic/Lymphatic: Reports none Allergic/Immunologic Allergic/Immunologic ED: Denies mouth swelling, tongue swelling or urticaria EXAM Physical Exam Narrative Exam Narrative: 26-year-old female no acute distress. Vital signs stable afebrile. Pulse ox high percent on room air no signs hypoxia. H EENT exam unremarkable. Moist Riis membranes. No trauma. No facial droop. Neck nontender. Lungs clear to auscultation. Heart regular rhythm rate about 100 no murmur. Abdomen soft nontender. Normal bowel sounds no peritoneal signs. Moving all 4 extremities. Normal rug cleaner hand strength. Normal dorsi plantar flexion. Neurologically she is awake and alert. Answering questions following commands. Stuttering speech. But not slurred. No dysarthria. Const Vital Signs: 10/31/21 21:28 10/31/21 21:48 10/31/21 22:48 Temperature 98.1 F Temperature Source Temporal Pulse Rate 104 H Pulse Rate [Lying] 105 H Pulse Rate [Sitting (for 1 minute prior to obtaining)] 114 H Pulse Rate [Standing (for 1 minute prior to obtaining)] 120 H Respiratory Rate 17 Respiratory Effort Normal Respiratory Pattern Normal Blood Pressure 147/87 H Blood Pressure [Lying] 142/80 H Blood Pressure [Sitting (for 1 minute prior to obtaining)] 138/85 H Blood Pressure [Standing (for 1 minute prior to obtaining)] 149/89 H Blood Pressure Mean 107 Blood Pressure Mean [Lying] 100 Blood Pressure Mean [Sitting (for 1 minute prior to obtaining)] 102 Blood Pressure Mean [Standing (for 1 minute prior to obtaining)] 109 Pulse Ox 100 Oxygen Delivery Method Room Air Positive well nourished, well developed and obese; Negative for cachectic, contractures or unkempt General Appearance ED: well developed and NAD; Negative for unkempt, cachectic, contractures, cyanotic or diaphoretic Nutritional Appearance: obese; Negative for cachectic HEENT Reports moist mucous membranes; Denies dry mucous membranes Negative for trauma or tenderness Mouth ED: No dry mucous membranes Mouth: No dry mucous membranes Eyes PERRL and EOMs intact bilaterally General Eye ED: Negative for pale conjunctiva or scleral icterus Neck no lymphadenopathy, supple and no JVD General: Negative for tenderness Chest Wall inspection of chest normal and palpation of chest normal Chest: Negative for other Resp normal respiratory effort and clear to auscultation bilaterally Effort and Inspection: Negative for retractions or pain with movement Auscultation: Negative for rales, rhonchi or wheezes Cardio regular rate, regular rhythm, S1 normal heart sound, S2 normal heart sound and no murmurs GI normal to inspection, nondistended, normoactive bowel sounds, non-tender, non-distended and no masses; Negative for hepatosplenomegaly Inspection: Negative for abdominal distention Auscultation: normoactive bowel sounds Palpation: soft; Negative for tender or guarding Back/Spine no CVA tenderness General Back: Negative for CVA tenderness Cervical Spine: Negative for cervical spine tenderness Thoracic Spine / Upper Back: Negative for thoracic spinal tenderness Lumbar Spine / Lower Back: Negative for lumbar spinal tenderness Extremity normal to inspection General Extremety ED: Negative for edema or tenderness General Extremity: Negative for edema Neuro oriented x3 and CN's II-XII intact bilaterally Sensorium / Orientation: alert; Negative for orientation impaired, lethargic or stuporous Motor Exam: strength 5/5 throughout; Negative for general weakness or strength abnormal Psych mental status grossly normal Appearance: Negative for unkempt Attitude: No agitated Mood & Affect: anxious; Negative for depressed Skin no rashes or lesions noted and no wounds Lesions: No lesion noted Rashes: No rashes noted Trauma: Negative for abrasion Wounds: Negative for wounds noted MDM MDM MDM Narrative Medical decision making narrative: 26-year-old with syncope versus near syncope. Exam benign. Will undergo a cardiac work-up. Exam is benign. We are also attempting to obtain her recent work-up at [facility]. Repeat exam patient is doing well at 11:20 PM. Had a lengthy discussion with the patient her significant other and other people in the room. There is nothing to really admit her to the hospital for. They need to follow-up with the outpatient work-up for further evaluation for her syncope and near syncope. They need to follow-up with the pollution control engineer to see if she truly has rheumatoid arthritis or not which right now she does not have any signs of that on physical exam. And follow-up with possible outpatient monitoring for possible dysrhythmia. They are comfortable being discharged home. Lab Data Attestation: I reviewed the patient's lab results. Lab results narrative: CBC shows a white count of 14.3. H&H of 12.9 and 39. Platelets 338. Electrolytes show a gap of 7 normal BUN and creatinine. Normal liver enzymes. Serum test negative. Orthostatic vital signs negative. Labs: Laboratory Results - last 24 hr 10/31/21 10/31/21 10/31/21 21:38 21:38 21:38 WBC 14.3 H RBC 4.78 Hgb 12.9 Hct 39.5 MCV 82.6 MCH 27.0 MCHC 32.7 RDW Std Deviation 38.5 RDW Coeff of Jd 12.7 Plt Count 338 MPV 8.9 Immature Gran % (Auto) 0.400 Neut % (Auto) 70.9 H Lymph % (Auto) 21.0 Storey % (Auto) 6.9 Eos % (Auto) 0.6 Baso % (Auto) 0.2 Absolute Neuts (auto) 10.1 H Absolute Lymphs (auto) 3.00 Nucleated RBC % 0 Sodium 137 Potassium 3.7 Chloride 105 Carbon Dioxide 25.0 Anion Gap 7 BUN 14 Creatinine 0.98 Estim Creat Clear Calc 68.20 Est GFR (MDRD) Af Amer 88 Est GFR (MDRD) Non-Af 73 BUN/Creatinine Ratio 14.3 Glucose 98 Calcium 9.4 Total Bilirubin 0.40 AST 8 L ALT 19 Alkaline Phosphatase 89 Troponin I High Sens 3 Total Protein 7.9 Albumin 4.2 Globulin 3.7 Albumin/Globulin Ratio 1.1 Serum , Qual NEGATIVE Radiography Chest X-Ray - ED: 1 View, Read by ED Physician, Heart, Lungs, Mediastinum, Bony Structures and No Acute Disease Diagnostic Testing: Clinical Impression(s) from Imaging Studies Brain CT 10/31/21 22:03 IMPRESSION: Normal unenhanced CT scan of the brain. Electronically Signed: Igor Echeverria DO at 22:54 EDT , Chest X-Ray 10/31/21 22:22 IMPRESSION: Normal x-ray examination of the chest. Electronically Signed: Igor Echeverria DO at 22:42 EDT , Chest x-ray, portable, single view interpreted by myself and radiologist shows no acute abnormality. Normal cardiac silhouette. No infiltrate. CAT scan of brain was read by the radiologist and reviewed by me shows no acute abnormality. Rhythm Strip Rhythm Strip: Sinus Rhythm Rate: 100 Ectopy: None EKG Initial EKG: Attestation: I personally reviewed and interpreted this EKG as follows: Interpretation: Sinus Rhythm and No Acute Injury Pattern Comments: Normal sinus rhythm rate 100 no acute signs of NH or ischemia. Discharge Plan Triage Chief Complaint: Syncope ED Provider: Bryan Hein Dx/Rx/DC Orders Clinical Impression: Syncope Instructions: ED Fainting, Uncertain Cause Prescriptions: No Action multivitamin Tablet 1 tab PO DAILY Zyrtec 10 mg capsule 10 mg PO DAILY PRN Primary Care Provider: Ji Rouse Referrals: Ji Rouse MD [Primary Care Provider] - As soon as possible Rome Beck MD [Med Staff - Active Staff] - As soon as possible Activity Restrictions/Additional Instructions: Follow-up with your primary care physician. Asked them if they can get her set up with either an outpatient Holter or event monitor to make sure she is not having any abnormal heart rhythm that could be making her feel like she is going to pass out or pass out. If they are unable to do so you can follow-up with our cardiology group Dr. Rome Beck and they can do outpatient monitors to their office. Stopped Topamax. Finished a prednisone taper and a neck can be stopped. Follow-up with a pollution control engineer for further evaluation for the possibility of her having rheumatoid arthritis. No driving. Disposition Disposition: Home, Self Care
--- NOTE | 2021-10-31 22:22 | RAD_ITS ---
STUDY: X-RAY CHEST REASON FOR EXAM: Female, 26 years old. syncope TECHNIQUE: Single AP portable view of the chest. COMPARISON: None. FINDINGS: The lungs are clear and expanded. There is no demonstrated pleural abnormality. Normal size heart. Normal mediastinum and godwin. Normal visualized pulmonary arteries. Normal visualized aortic arch and descending thoracic aorta. Normal visualized thoracic spine. Normal visualized ribs, clavicles, and shoulders. There is no demonstrated abnormality of the visualized soft tissue structures of the upper abdomen. RAD/Chest 1 View (Portable) IMPRESSION: Normal x-ray examination of the chest. Electronically Signed: Igor Echeverria DO at 22:42 EDT ,
[2021-10-31 22:23] LABS: Absolute Neutrophil Count 10.1 X10^3/uL (2.0-7.7); Basophil# 0.03 X10^3/uL; Basophil% 0.2 % (0-1); Eosinophil# 0.08 X10^3/uL; Eosinophils% 0.6 % (0-5); Hematocrit 39.5 % (37-47); Hemoglobin 12.9 g/dL (12.0-15.0); Mean Corp Hgb Conc 32.7 g/dL (32-36); Mean Corpuscular Volume 82.6 fL (81-99); Mean Platelet Vol. 8.9 fl (6.2-12.0); Monocyte# 0.99 X10^3/uL; Monocyte% 6.9 % (0-10); NRBC Flagged by Analyzer 0 % (0-5); Neutrophil % 70.9 % (47-70); Platelet Count 338 K/mm3 (150-450); RBC Distribution Width CV 12.7 % (11.6-14.6); RBC Distribution Width SD 38.5 fl (35.1-43.9); Red Blood Count 4.78 M/mm3 (4.2-5.4); White Blood Count 14.3 K/mm3 (4.4-11.0)
[2021-10-31 22:37] LABS: Internal QC Validated? YES +Cl - CLEAR BKGD; Pregnancy, Serum, hCG Quali. NEGATIVE Negative
[2021-10-31 22:43] LABS: ALB/GLOB Ratio 1.1 RATIO (0.9-2.4); AST(SGOT) 8 U/L (15-37); Alanine Aminotransfer ALT/SGPT 19 U/L (13-56); Albumin, Serum 4.2 g/dL (3.2-5.0); Alkaline Phosphatase 89 U/L (45-117); Anion Gap 7 (5-15); BUN 14 mg/dL (7-18); BUN/Creat Ratio 14.3 RATIO (10-20); Calcium,Total 9.4 mg/dL (8.5-10.1); Chloride 105 mmol/L (98-107); Creatinine, Serum 0.98 mg/dL (0.55-1.02); EST Glomerular Filtration Rate 73 mL/min (>60); Est Glom Filt Rate - Afr Amer 88 mL/min (>60); Globulin 3.7 g/dL (2.2-4.2); Glucose 98 mg/dL (74-106); Potassium 3.7 mmol/L (3.5-5.1); Protein, Total 7.9 g/dL (6.4-8.2); Sodium Level 137 mmol/L (136-145); Troponin-I HS 3 pg/mL (3.0-54.0)
[2021-10-31 22:48] VITALS: BP 138/85; BP 142/80; BP 149/89; PULSE 105; PULSE 114; PULSE 120
[2021-10-31 23:44] VITALS: BP 138/79; PULSE 74; RESP 17; TEMP 36.8; O2SAT 98
== END 2021-10-31 23:47 | disposition home or self-care (01) ==
PROVIDERS: Emergency Provider Emergency Medicine; PCP Family Medicine; Visit Provider Emergency Medicine
DX: R55 Syncope and collapse (principal); F41.9 Anxiety disorder, unspecified; E66.9 Obesity, unspecified; Z79.52 Long term (current) use of systemic steroids
CPT/HCPCS: 70450; 71045; 80053; 84484; 84703; 85025; 93005; 99285

== ENCOUNTER → 2021-12-07 | Outpatient (CLI) | payer OTHER, MEDICAID, SELFPAY ==
[2021-12-07 17:48] LABS: Absolute Lymphocyte Count 2.22 X10^3/uL (0.83-4.51); Absolute Neutrophil Count 5.5 X10^3/uL (2.0-7.7); Basophil# 0.03 X10^3/uL; Basophil% 0.3 % (0-1); Eosinophil# 0.12 X10^3/uL; Eosinophils% 1.4 % (0-5); Hematocrit 36.7 % (37-47); Hemoglobin 11.4 g/dL (12.0-15.0); Lymphocyte # 2.22 X10^3/ul (0.83-4.51); Lymphocyte % 25.8 % (19-41); Mean Corp Hgb Conc 31.1 g/dL (32-36); Mean Corpuscular Hgb 26.1 pg (27.0-32.0); Mean Corpuscular Volume 84.2 fL (81-99); Mean Platelet Vol. 9.3 fl (6.2-12.0); Monocyte# 0.69 X10^3/uL; NRBC Flagged by Analyzer 0 % (0-5); Neutrophil # 5.51 X10^3/uL (2.7-7.7); Neutrophil % 63.9 % (47-70); Platelet Count 338 K/mm3 (150-450); RBC Distribution Width CV 12.6 % (11.6-14.6); RBC Distribution Width SD 38.4 fl (35.1-43.9); Red Blood Count 4.36 M/mm3 (4.2-5.4); White Blood Count 8.6 K/mm3 (4.4-11.0)
[2021-12-07 17:52] LABS: AST(SGOT) 13 U/L (15-37); Alanine Aminotransfer ALT/SGPT 24 U/L (13-56); Albumin, Serum 3.8 g/dL (3.2-5.0); Alkaline Phosphatase 91 U/L (45-117); Anion Gap 6 (5-15); BUN 12 mg/dL (7-18); BUN/Creat Ratio 14.2 RATIO (10-20); CRP 6.56 mg/L (0.0-3.0); Chloride 104 mmol/L (98-107); Creatinine, Serum 0.85 mg/dL (0.55-1.02); EST Glomerular Filtration Rate 85 mL/min (>60); Est Glom Filt Rate - Afr Amer 103 mL/min (>60); Globulin 3.7 g/dL (2.2-4.2); Glucose 125 mg/dL (74-106); Potassium 3.7 mmol/L (3.5-5.1); Protein, Total 7.5 g/dL (6.4-8.2); Sodium Level 139 mmol/L (136-145)
[2021-12-07 18:12] LABS: Erythrocyte Sedimentation Rate 13 mm/hr (0-30)
[2021-12-07 22:20] LABS: Rheumatoid Factor < 10.0 IU/mL (<15)
[2021-12-08 09:41] LABS: Hepatitis B Surface Antibody Non-Reactive; Hepatitis B Surface Antigen Non-Reactive (Nonreactive); Hepatitis C Antibody Non-Reactive (Nonreactive)
[2021-12-11 09:05] LABS: ANTINUCLEAR ANTIBODIES DIRECT Positive (Negative)
[2021-12-11 09:38] LABS: CCP IgG Antibodies 4 units (0-19)
== END | disposition home or self-care (01) ==
LOC: MTLAB 14:31
PROVIDERS: PCP Family Medicine; Referring Provider Internal Medicine Rheumatology; Visit Provider Internal Medicine Rheumatology
DX: M06.4 Inflammatory polyarthropathy (principal); M21.41 Flat foot [pes planus] (acquired), right foot; F41.9 Anxiety disorder, unspecified; K58.0 Irritable bowel syndrome with diarrhea; H93.19 Tinnitus, unspecified ear
CPT/HCPCS: 36415; 80053; 85025; 85652; 86038; 86140; 86200; 86431; 86706; 86803; 87340

== ENCOUNTER → 2022-01-30 | Outpatient (CLI) | payer OTHER, MEDICAID, SELFPAY ==
[2022-01-30 17:46] LABS: Absolute Lymphocyte Count 2.38 X10^3/uL (0.83-4.51); Absolute Neutrophil Count 5.1 X10^3/uL (2.0-7.7); Basophil# 0.03 X10^3/uL; Basophil% 0.4 % (0-1); Eosinophil# 0.22 X10^3/uL; Eosinophils% 2.6 % (0-5); Hematocrit 35.8 % (37-47); Hemoglobin 11.5 g/dL (12.0-15.0); Lymphocyte # 2.38 X10^3/ul (0.83-4.51); Mean Corp Hgb Conc 32.1 g/dL (32-36); Mean Corpuscular Hgb 27.1 pg (27.0-32.0); Mean Corpuscular Volume 84.4 fL (81-99); Monocyte# 0.81 X10^3/uL; Monocyte% 9.5 % (0-10); NRBC Flagged by Analyzer 0 % (0-5); Neutrophil # 5.05 X10^3/uL (2.7-7.7); Neutrophil % 59.3 % (47-70); Platelet Count 333 K/mm3 (150-450); RBC Distribution Width CV 13.2 % (11.6-14.6); RBC Distribution Width SD 39.5 fl (35.1-43.9); Red Blood Count 4.24 M/mm3 (4.2-5.4); White Blood Count 8.5 K/mm3 (4.4-11.0)
[2022-01-30 18:24] LABS: ALB/GLOB Ratio 1.1 RATIO (0.9-2.4); AST(SGOT) 11 U/L (15-37); Alanine Aminotransfer ALT/SGPT 29 U/L (13-56); Albumin, Serum 3.9 g/dL (3.2-5.0); Alkaline Phosphatase 79 U/L (45-117); Anion Gap 6 (5-15); BUN 10 mg/dL (7-18); BUN/Creat Ratio 12.1 RATIO (10-20); Calcium,Total 8.7 mg/dL (8.5-10.1); Chloride 102 mmol/L (98-107); Creatinine, Serum 0.83 mg/dL (0.55-1.02); EST Glomerular Filtration Rate 88 mL/min (>60); Est Glom Filt Rate - Afr Amer 106 mL/min (>60); Globulin 3.5 g/dL (2.2-4.2); Glucose 111 mg/dL (74-106); Potassium 3.9 mmol/L (3.5-5.1); Protein, Total 7.4 g/dL (6.4-8.2); Sodium Level 137 mmol/L (136-145)
== END | disposition home or self-care (01) ==
PROVIDERS: PCP Family Medicine; Referring Provider Internal Medicine Rheumatology; Visit Provider Internal Medicine Rheumatology
DX: M06.4 Inflammatory polyarthropathy (principal); Z79.899 Other long term (current) drug therapy; M21.41 Flat foot [pes planus] (acquired), right foot; F41.9 Anxiety disorder, unspecified; K58.0 Irritable bowel syndrome with diarrhea; H93.19 Tinnitus, unspecified ear
CPT/HCPCS: 36415; 80053; 85025

== ENCOUNTER → 2022-02-07 | Outpatient (CLI) | payer OTHER, MEDICAID, SELFPAY ==
[2022-02-07 11:49] LABS: EXAGEN MAILED SPECIMEN
[2022-02-07 12:37] LABS: Color, Urine Yellow (Yellow); Glucose, Dipstick Normal (Normal); Ketone-Dipstick 50 mg/dl (Negative); Leukocyte Esterase-Dipstick Negative /ul (Negative); Nitrite-Dipstick Negative (Negative); Occult Blood-Urine Negative /ul (Negative); Protein-Dipstick Negative (Negative); Urine Bilirubin Dipstick Negative (Negative); Urine Clarity Clear (Clear); Urine Urobilinogen Normal (Normal)
[2022-02-07 13:15] LABS: Protein, Urine (Random) < 6.0 mg/dL (<11.9); Protein:Creat Ratio 25 mg/g CRE (0-200)
== END | disposition home or self-care (01) ==
LOC: MTLAB 10:46
PROVIDERS: PCP Family Medicine; Referring Provider Internal Medicine Rheumatology; Visit Provider Internal Medicine Rheumatology
DX: M06.4 Inflammatory polyarthropathy (principal); R76.8 Other specified abnormal immunological findings in serum; Z79.899 Other long term (current) drug therapy
CPT/HCPCS: 36415; 81002; 82570; 84156

== ENCOUNTER → 2022-04-03 | Outpatient (CLI) | payer OTHER, BC, MEDICAID, SELFPAY ==
[2022-04-03 17:48] LABS: Absolute Lymphocyte Count 2.51 X10^3/uL (0.83-4.51); Absolute Neutrophil Count 4.2 X10^3/uL (2.0-7.7); Basophil# 0.03 X10^3/uL; Basophil% 0.4 % (0-1); Eosinophil# 0.18 X10^3/uL; Eosinophils% 2.4 % (0-5); Hematocrit 35.7 % (37-47); Hemoglobin 11.1 g/dL (12.0-15.0); Lymphocyte # 2.51 X10^3/ul (0.83-4.51); Lymphocyte % 33.9 % (19-41); Mean Corp Hgb Conc 31.1 g/dL (32-36); Mean Corpuscular Hgb 26.1 pg (27.0-32.0); Mean Platelet Vol. 9.1 fl (6.2-12.0); Monocyte# 0.51 X10^3/uL; Monocyte% 6.9 % (0-10); NRBC Flagged by Analyzer 0.3 % (0-5); Neutrophil # 4.17 X10^3/uL (2.7-7.7); Neutrophil % 56.3 % (47-70); Platelet Count 366 K/mm3 (150-450); RBC Distribution Width CV 13.3 % (11.6-14.6); RBC Distribution Width SD 40.7 fl (35.1-43.9); Red Blood Count 4.25 M/mm3 (4.2-5.4); White Blood Count 7.4 K/mm3 (4.4-11.0)
[2022-04-03 18:13] LABS: ALB/GLOB Ratio 1.1 RATIO (0.9-2.4); AST(SGOT) 14 U/L (15-37); Alanine Aminotransfer ALT/SGPT 23 U/L (13-56); Albumin, Serum 3.8 g/dL (3.2-5.0); Alkaline Phosphatase 87 U/L (45-117); Anion Gap 6 (5-15); BUN 12 mg/dL (7-18); BUN/Creat Ratio 11.8 RATIO (10-20); Calcium,Total 9.2 mg/dL (8.5-10.1); Chloride 104 mmol/L (98-107); Creatinine, Serum 1.02 mg/dL (0.55-1.02); EST Glomerular Filtration Rate 69 mL/min (>60); Est Glom Filt Rate - Afr Amer 83 mL/min (>60); Globulin 3.6 g/dL (2.2-4.2); Glucose 97 mg/dL (74-106); Potassium 3.9 mmol/L (3.5-5.1); Protein, Total 7.4 g/dL (6.4-8.2); Sodium Level 138 mmol/L (136-145)
== END | disposition home or self-care (01) ==
LOC: MTLAB 15:17
PROVIDERS: PCP Family Medicine; Referring Provider Internal Medicine Rheumatology; Visit Provider Internal Medicine Rheumatology
DX: M06.4 Inflammatory polyarthropathy (principal); Z79.899 Other long term (current) drug therapy
CPT/HCPCS: 36415; 80053; 85025

== ENCOUNTER → 2022-06-01 | Outpatient (CLI) | payer OTHER, BC, MEDICAID, SELFPAY ==
[2022-06-01 17:35] LABS: Absolute Lymphocyte Count 2.97 X10^3/uL (0.83-4.51); Absolute Neutrophil Count 4.1 X10^3/uL (2.0-7.7); Basophil# 0.03 X10^3/uL; Basophil% 0.4 % (0-1); Eosinophil# 0.16 X10^3/uL; Hematocrit 39.9 % (37-47); Hemoglobin 11.6 g/dL (12.0-15.0); Lymphocyte # 2.97 X10^3/ul (0.83-4.51); Mean Corp Hgb Conc 29.1 g/dL (32-36); Mean Platelet Vol. 9.2 fl (6.2-12.0); Monocyte# 0.51 X10^3/uL; Monocyte% 6.5 % (0-10); NRBC Flagged by Analyzer 0 % (0-5); Neutrophil # 4.13 X10^3/uL (2.7-7.7); Neutrophil % 52.8 % (47-70); Platelet Count 322 K/mm3 (150-450); RBC Distribution Width CV 13.2 % (11.6-14.6); RBC Distribution Width SD 44.7 fl (35.1-43.9); Red Blood Count 4.29 M/mm3 (4.2-5.4); White Blood Count 7.8 K/mm3 (4.4-11.0)
[2022-06-01 18:47] LABS: ALB/GLOB Ratio 1.1 RATIO (0.9-2.4); AST(SGOT) 12 U/L (15-37); Alanine Aminotransfer ALT/SGPT 23 U/L (13-56); Albumin, Serum 3.9 g/dL (3.2-5.0); Alkaline Phosphatase 93 U/L (45-117); Anion Gap 6 (5-15); BUN 12 mg/dL (7-18); BUN/Creat Ratio 13.9 RATIO (10-20); Calcium,Total 8.8 mg/dL (8.5-10.1); Chloride 103 mmol/L (98-107); Creatinine, Serum 0.86 mg/dL (0.55-1.02); EST Glomerular Filtration Rate 84 mL/min (>60); Est Glom Filt Rate - Afr Amer 101 mL/min (>60); Globulin 3.5 g/dL (2.2-4.2); Glucose 104 mg/dL (74-106); Potassium 3.7 mmol/L (3.5-5.1); Protein, Total 7.4 g/dL (6.4-8.2); Sodium Level 138 mmol/L (136-145)
== END | disposition home or self-care (01) ==
LOC: MTLAB 15:47
PROVIDERS: PCP Family Medicine; Referring Provider Internal Medicine Rheumatology; Visit Provider Internal Medicine Rheumatology
DX: M06.4 Inflammatory polyarthropathy (principal); Z79.899 Other long term (current) drug therapy
CPT/HCPCS: 36415; 80053; 85025

== ENCOUNTER → 2022-08-31 | Outpatient (CLI) | payer OTHER, BC, MEDICAID, SELFPAY ==
--- NOTE | 2022-08-31 11:53 | US_ITS ---
INDICATION: pelvic pain -- schedule prior to 08/31/22 EXAMINATION: Ultrasound US Pelvis Non-OB Complete TECHNIQUE: Transabdominal pelvic ultrasound was performed. Grayscale, spectral waveform, and color flow Doppler evaluation of the adnexa. COMPARISON: Ct of 08/07/15. FINDINGS: UTERUS: Surgically absent. RIGHT OVARY: 3.1 x 2.3 x 1.77 m in diameter. Tiny follicles incidentally noted.. Normal Doppler flow. No adnexal mass. LEFT OVARY: 3.4 x 2.2 x 1.5 cm in diameter.. Non-enlarged, normal echogenicity. Normal Doppler flow. No adnexal mass. FREE FLUID: None. OTHER: Distended urinary bladder measuring 12.7 x 8 x 9.6 cm in diameter. No bladder wall thickening. US/Pelvic (Non ) IMPRESSION: Previous hysterectomy. Normal ovaries. No adnexal mass or free fluid. Electronically Signed: Sean Lyons MD at 18:15 EDT ,
== END | disposition home or self-care (01) ==
LOC: OPUS 11:52
PROVIDERS: PCP Family Medicine; Referring Provider Obstetrics & Gynecology; Visit Provider Obstetrics & Gynecology
DX: R10.2 Pelvic and perineal pain (principal)
CPT/HCPCS: 76856; 93976

== ENCOUNTER → 2022-09-01 | Outpatient (CLI) | payer OTHER, BC, MEDICAID, SELFPAY ==
[2022-09-01 08:36] LABS: Hemoglobin A1c 5.2 % (3.8-5.6)
[2022-09-01 08:41] LABS: Cholesterol 185 mg/dL (200); Glucose 89 mg/dL (74-106); High Density Lipoprotein 46 mg/dL; T4 Free Direct 1.15 ng/dL (0.76-1.46); Thyroid Stim Hormone (TSH) 0.91 uIU/mL (0.358-3.74); Triglycerides 92 mg/dL; Very Low Density Lipoprotein 18 mg/dL (5-40)
--- NOTE | 2022-09-01 15:14 | US_ITS ---
INDICATION: thyromegaly EXAMINATION: Ultrasound US Thyroid (eg thyroid, parathyroid, parotid) TECHNIQUE: Boles scale and color doppler imaging was performed of the thyroid gland. COMPARISON: May 02, 2021 FINDINGS: RIGHT THYROID LOBE: 5.4 x 2.3 x 2.3 cm previous 5.6 x 2.0 x 1.8 cm. Homogeneous echotexture with normal vascularity. 0.8 x 0.7 x 0.4 cm right lower pole cyst previous 0.6 x 0.5 x 0.3 cm. LEFT THYROID LOBE: 5.3 x 1.8 x 1.8 cm previous 5.3 x 1.8 x 1.6 cm.. Homogeneous echotexture with normal vascularity. [Lower pole cyst 0.7 x 0.6 x 0.4 cm previous 0.6 x 0.5 x 0.3 cm. ISTHMUS: 4 mm. Nodule left side of this measures 1.5 x 1.0 x 0.8 cm previous 0.9 x 0.8 x 0.6 cm. This nodule is solid with hypoechoic appearance T RADS category 4. US/Thyroid IMPRESSION: Multicystic/multinodular goiter as above. Electronically Signed: Jose Peraza MD, MARIANA at 15:09 EDT ,
[2022-09-02 04:07] LABS: Thyroid Peroxidase AB < 9 IU/mL (0-34)
[2022-09-05 11:09] LABS: Vitamin D 1,25-Dihydroxy 43.5 pg/mL (24.8-81.5)
== END | disposition home or self-care (01) ==
PROVIDERS: PCP Family Medicine; Referring Provider Obstetrics & Gynecology; Visit Provider Obstetrics & Gynecology
DX: E66.8 Other obesity (principal); E01.0 Iodine-deficiency related diffuse (endemic) goiter; Z68.37 Body mass index [BMI] 37.0-37.9, adult
CPT/HCPCS: 36415; 76536; 80061; 82652; 82947; 83036; 83525; 84439; 84443; 86376

== ENCOUNTER 2023-01-18 16:46 | Emergency (ER) | payer OTHER, SELFPAY ==
[2023-01-18 16:47] VITALS: BP 144/89; PULSE 97; RESP 18; TEMP 36; O2SAT 100; BMI 36.8
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
[2023-01-18] MEDS: Ibuprofen 600 MG Tablet PO (20:24)
[2023-01-18] MEDS: Orphenadrine 60 MG/2 ML Ampul IM (20:25)
== END 2023-01-18 20:58 | disposition home or self-care (01) ==
PROVIDERS: Emergency Provider Emergency Medicine; Visit Provider Emergency Medicine
DX: S16.1XXA Strain of muscle, fascia and tendon at neck level, initial encounter (principal); M06.9 Rheumatoid arthritis, unspecified; S40.012A Contusion of left shoulder, initial encounter; G44.209 Tension-type headache, unspecified, not intractable; V44.5XXA Car driver injured in collision with heavy transport vehicle or bus in traffic accident, initial encounter
CPT/HCPCS: 96372; 99285

== ENCOUNTER → 2023-04-30 | Outpatient (CLI) | payer OTHER, SELFPAY | END | disposition home or self-care (01) | PROVIDERS: Visit Provider Obstetrics & Gynecology | DX: R30.0 Dysuria (principal) | CPT/HCPCS: 87086 ==

== ENCOUNTER → 2024-04-16 | Outpatient (CLI) | payer OTHER, SELFPAY ==
[2024-04-16 11:02] LABS: HIV - WCH Non-Reactive (Nonreactive); Hepatitis B Surface Antigen Non-Reactive (Nonreactive); Hepatitis C Antibody Non-Reactive (Nonreactive); Syphilis Antibodies Non-reactive
[2024-04-17 23:07] LABS: Chlamydia By Nucleic Acid AMP Negative (Negative); Gonococcus By Nucleic Acid AMP Negative (Negative)
== END | disposition home or self-care (01) ==
PROVIDERS: PCP Family Medicine; Referring Provider Nurse Practitioner Family; Visit Provider Nurse Practitioner Family
DX: Z11.3 Encounter for screening for infections with a predominantly sexual mode of transmission (principal)
CPT/HCPCS: 36415; 86695; 86696; 86703; 86780; 86803; 87070; 87205; 87340; 87491; 87591

== ENCOUNTER → 2024-09-17 | Outpatient (CLI) | payer OTHER, SELFPAY ==
--- NOTE | 2024-09-17 15:38 | MRI_ITS ---
PROCEDURE: LOWER EXT JOINT ONLY (ROUTINE) 09/17/2024 REASON FOR EXAM: LEFT KNEE PAIN TECHNIQUE: LOWER EXT JOINT ONLY (ROUTINE) Multiplanar and multisequence images were obtained without IV contrast administration. COMPARISON: COMPARISON : None. FINDINGS: Bone Marrow: Normal. No occult fracture, bone lesion, or signs of avascular necrosis. Effusion: Trace physiologic joint fluid, no significant effusion. Soft Tissues: Unremarkable. Ligaments and Tendons: Medial and lateral collateral ligaments are normal. Normal menisci. The anterior and posterior cruciate ligaments are normal. Other: Normal cartilage. Patellofemoral ligaments are normal. No fat pad edema. MRI/Lower Ext Joint Only (Routine) IMPRESSION: Negative left knee MRI. No internal derangement. No occult fracture or bone b ruise identified. Reading Location: [facility]
== END | disposition home or self-care (01) ==
LOC: OPMRI 15:31
PROVIDERS: PCP Family Medicine
DX: S83.8X2A Sprain of other specified parts of left knee, initial encounter (principal); M25.562 Pain in left knee
CPT/HCPCS: 73721

== ENCOUNTER 2024-09-25 16:19 | Emergency (ER) | payer OTHER, SELFPAY ==
[2024-09-25] VITALS (18 sets, daily range): BP systolic 110–147; BP diastolic 66–94; PULSE 64–90; RESP 12–25; TEMP 37.1; O2SAT 98–100; BMI 41.1
[2024-09-25 16:47] LABS: Hematocrit 39.0 % (37-47); Hemoglobin 12.2 g/dL (12.0-15.0); Immature Granulocytes Count 0.030 X10^3/uL (0.0-0.0); Mean Corp Hgb Conc 31.3 g/dL (32-36); Mean Corpuscular Volume 81.3 fL (81-99); Mean Platelet Vol. 10.1 fl (6.2-12.0); NRBC Flagged by Analyzer 0 % (0-5); Platelet Count 268 K/mm3 (150-450); RBC Distribution Width CV 13.5 % (11.6-14.6); RBC Distribution Width SD 39.8 fl (35.1-43.9); Red Blood Count 4.80 M/mm3 (4.2-5.4); White Blood Count 11.1 K/mm3 (4.4-11.0)
--- NOTE | 2024-09-25 17:10 | RAD_ITS ---
PROCEDURE: CHEST 1 VIEW (PORTABLE) 09/25/2024 REASON FOR EXAM: CHEST PAIN TECHNIQUE: Frontal view of the chest. COMPARISON: Chest radiograph 10/31/2021 FINDINGS: Hardware: Monitoring device projects over the lower mediastinum. Heart: The heart size is normal. Lungs: Questionable nodular opacity projecting over the posterior aspect of the right 9th rib measuring 2.0 cm. No focal consolidation or pleural effusion. RAD/Chest 1 View (Portable) IMPRESSION: 1. No acute cardiopulmonary abnormality. 2. Questionable nodular opacity measuring 2.0 cm over the posterior right 9th rib, possibly artifactual. Consider PA and lateral chest radiographs for further evaluation. Reading Location: [facility]
--- NOTE | 2024-09-25 17:15 | EDS_ITS ---
HPI <ALLISON Guillermo - Last Filed: 09/25/24 22:07> History of Present Illness Chief Complaint: Chest Pain Narrative Narrative: 28-year-old female with past medical history of ASD repair at 7 years old, sinus node tachycardia status post ablation, anxiety presents with chest pain. She states this morning she had a slight headache and felt nauseated after breakfast. 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 She describes it as a heavy pain and then states it feels like indigestion. She thought maybe it was acid reflux or anxiety but it did not pass so she decided to come in. She has no fever, chills, cough or shortness of breath. No abdominal pain, vomiting, or diarrhea. She does not smoke. She denies drug use. She denies history of DVT/PE, leg pain or swelling, recent surgery or travel, hormone use, or hemoptysis. PFSH <ALLISON Guillermo - Last Filed: 09/25/24 22:07> [facility] Home Medications ?Medication ?Instructions ?Recorded ?Last Taken ?Type cetirizine 10 mg capsule (Zyrtec) 10 mg PO DAILY PRN 0 04/25/21 Unknown History buspirone 5 mg tablet 5 mg PO DAILY 04/27/22 Unkno wn History dicyclomine 10 mg capsule 10 mg PO ONCE 04/27/22 Unkno wn History escitalopram oxalate 10 mg tablet 10 mg PO QDAY Unknown History (Lexapro) prazosin 2 mg capsule 2 mg PO BID 04/16/24 Unknown History propranolol 10 mg tablet 10 mg PO BID 04/16/24 Unknow n History fluconazole 150 mg tablet 150 mg PO ONCE 1 dose #1 TAB 04/22/24 Unknown Rx omeprazole 40 mg capsule,delayed 40 mg PO DAILY 14 day s #14 caps 09/25/24 Unknown Rx release Allergy/AdvReac Type Severity Reaction Status Date / Time Penicillins Allergy Hives Verified 09/25/24 16:20 Family History (System 09/18/24 @ 05:36 by Mimi Gustafson) Other Breast cancer Surgical History History of total vaginal hysterectomy (TVH) History of open heart surgery History of tubal ligation Social History (System 09/18/24 @ 05:36 by Mimi Gustafson) household members: spouse housing: house number of children: 2 current occupational status: employed and unemployed current occupation: [employer] current occupational exposures/hazards: No pets and animals: Yes history of recent travel: No Smoking Status: Never smoker second hand exposure: No alcohol intake: current alcohol intake frequency: holidays/special occasions only Alcohol type: beer substance use type: does not use caffeine: No what type of physical activity do you participate in: walking frequency: 5-6 times per week duration: 45-60 minutes/day seatbelt use: always do you feel safe at home: Yes additional social history: [employer] at [employer] ROS <ALLISON Guillermo - Last Filed: 09/25/24 22:07> ROS ED ROS Narrative Constitutional: Negative for fever, chills, malaise. CVS: Positive for chest pain. Negative for palpitations. Respiratory: Negative for shortness of breath, cough. GI: Negative for abdominal pain, nausea, vomiting. EXAM <ALLISON Guillermo - Last Filed: 09/25/24 22:07> Physical Exam Narrative Exam Narrative: CONST: Patient sitting in no acute distress. EYES: Normal inspection. NECK: Normal inspection. RESP: No respiratory distress, CTAB. CVS: Regular rate and rhythm, no murmur, no gallop. ABD: Soft and nontender, no guarding or rebound, nondistended. SKIN: Color normal, no rash, warm, dry, intact. EXTREMITIES: Normal appearance, no pedal edema. NEURO: Alert and answering questions appropriately. PSYCH: Normal affect. Const Vital Signs: 09/25/24 16:20 09/25/24 16:22 09/25/24 17:17 Temperature 98.7 F Temperature Source Oral Pulse Rate 80 Respiratory Rate 16 Respiratory Effort Normal Non-Labored Respiratory Pattern Normal Blood Pressure 142/81 H Blood Pressure Mean 101 Pulse Ox 100 Oxygen Delivery Method Room Air Room Air 09/25/24 17:20 09/25/24 18:00 09/25/24 19:00 Temperature Temperature Source Pulse Rate 79 87 78 Respiratory Rate 15 14 19 H Respiratory Effort Respiratory Pattern Blood Pressure 138/91 H 147/85 H 126/86 H Blood Pressure Mean 106 105 99 Pulse Ox 100 98 99 Oxygen Delivery Method Room Air Room Air Room Air 09/25/24 19:30 09/25/24 19:38 09/25/24 19:45 Temperature Temperature Source Pulse Rate 74 74 70 Respiratory Rate 16 14 17 Respiratory Effort Respiratory Pattern Blood Pressure 125/78 H Blood Pressure Mean 93 Pulse Ox 100 99 99 Oxygen Delivery Method Room Air 09/25/24 20:00 09/25/24 20:15 09/25/24 20:24 Temperature Temperature Source Pulse Rate 73 83 74 Respiratory Rate 17 25 H 13 Respiratory Effort Respiratory Pattern Blood Pressure 140/93 H Blood Pressure Mean 108 Pulse Ox 100 100 100 Oxygen Delivery Method 09/25/24 20:30 09/25/24 20:45 09/25/24 21:00 Temperature Temperature Source Pulse Rate 72 78 70 Respiratory Rate 18 20 H 16 Respiratory Effort Respiratory Pattern Blood Pressure 126/72 H 134/86 H 140/86 H Blood Pressure Mean 88 101 104 Pulse Ox 100 100 100 Oxygen Delivery Method 09/25/24 21:00 09/25/24 21:15 09/25/24 21:15 Temperature Temperature Source Pulse Rate 75 68 Respiratory Rate 19 H 15 Respiratory Effort Respiratory Pattern Blood Pressure 138/85 H 140/86 H 140/86 H Blood Pressure Mean 101 103 103 Pulse Ox 100 99 Oxygen Delivery Method 09/25/24 21:30 09/25/24 21:30 09/25/24 21:45 Temperature Temperature Source Pulse Rate 90 64 Respiratory Rate 23 H 14 Respiratory Effort Respiratory Pattern Blood Pressure 122/86 H 122/86 H 128/66 H Blood Pressure Mean 98 98 86 Pulse Ox 100 99 Oxygen Delivery Method Room Air Room Air 09/25/24 21:45 09/25/24 22:00 09/25/24 22:08 Temperature 98.7 F Temperature Source Pulse Rate 74 72 69 Respiratory Rate 19 H 14 12 Respiratory Effort Respiratory Pattern Blood Pressure 110/94 H 128/82 H 128/82 H Blood Pressure Mean 101 97 97 Pulse Ox 100 100 100 Oxygen Delivery Method Room Air <Dr. Tobin Madrid, DO - Last Filed: 09/26/24 00:10> Physical Exam Const Vital Signs: 09/25/24 16:20 09/25/24 16:22 09/25/24 17:17 Temperature 98.7 F Temperature Source Oral Pulse Rate 80 Respiratory Rate 16 Respiratory Effort Normal Non-Labored Respiratory Pattern Normal Blood Pressure 142/81 H Blood Pressure Mean 101 Pulse Ox 100 Oxygen Delivery Method Room Air Room Air 09/25/24 17:20 09/25/24 18:00 09/25/24 19:00 Temperature Temperature Source Pulse Rate 79 87 78 Respiratory Rate 15 14 19 H Respiratory Effort Respiratory Pattern Blood Pressure 138/91 H 147/85 H 126/86 H Blood Pressure Mean 106 105 99 Pulse Ox 100 98 99 Oxygen Delivery Method Room Air Room Air Room Air 09/25/24 19:30 09/25/24 19:38 09/25/24 19:45 Temperature Temperature Source Pulse Rate 74 74 70 Respiratory Rate 16 14 17 Respiratory Effort Respiratory Pattern Blood Pressure 125/78 H Blood Pressure Mean 93 Pulse Ox 100 99 99 Oxygen Delivery Method Room Air 09/25/24 20:00 09/25/24 20:15 09/25/24 20:24 Temperature Temperature Source Pulse Rate 73 83 74 Respiratory Rate 17 25 H 13 Respiratory Effort Respiratory Pattern Blood Pressure 140/93 H Blood Pressure Mean 108 Pulse Ox 100 100 100 Oxygen Delivery Method 09/25/24 20:30 09/25/24 20:45 09/25/24 21:00 Temperature Temperature Source Pulse Rate 72 78 70 Respiratory Rate 18 20 H 16 Respiratory Effort Respiratory Pattern Blood Pressure 126/72 H 134/86 H 140/86 H Blood Pressure Mean 88 101 104 Pulse Ox 100 100 100 Oxygen Delivery Method 09/25/24 21:00 09/25/24 21:15 09/25/24 21:15 Temperature Temperature Source Pulse Rate 75 68 Respiratory Rate 19 H 15 Respiratory Effort Respiratory Pattern Blood Pressure 138/85 H 140/86 H 140/86 H Blood Pressure Mean 101 103 103 Pulse Ox 100 99 Oxygen Delivery Method 09/25/24 21:30 09/25/24 21:30 09/25/24 21:45 Temperature Temperature Source Pulse Rate 90 64 Respiratory Rate 23 H 14 Respiratory Effort Respiratory Pattern Blood Pressure 122/86 H 122/86 H 128/66 H Blood Pressure Mean 98 98 86 Pulse Ox 100 99 Oxygen Delivery Method Room Air Room Air 09/25/24 21:45 09/25/24 22:00 09/25/24 22:08 Temperature 98.7 F Temperature Source Pulse Rate 74 72 69 Respiratory Rate 19 H 14 12 Respiratory Effort Respiratory Pattern Blood Pressure 110/94 H 128/82 H 128/82 H Blood Pressure Mean 101 97 97 Pulse Ox 100 100 100 Oxygen Delivery Method Room Air <ALLISON Guillermo - Last Filed: 09/25/24 22:07> Heart Score History: Slightly/Non-Suspicious ECG: Normal Age: </= 45 years Risk Factors: 1 or 2 Risk Factors Troponin: </= Normal Limit Score: 1 <Dr. Tobin Madrid DO - Last Filed: 09/26/24 00:10> Heart Score Score: 1 MDM <ALLISON Guillermo - Last Filed: 09/25/24 22:07> [facility] MDM Narrative Medical decision making narrative: Differential includes but not limited to GERD, ACS, PE 28-year-old female presents with chest pain. This started at rest this afternoon. She had nausea this morning but no vomiting. No abdominal pain. She appears well and nontoxic. Vital stable. She has a normal cardiopulmonary exam. Abdomen is soft, nontender. Cardiac workup was ordered. She is also describing her pain as indigestion so she was given a GI cocktail, Toradol, Zofran and aspirin. EKG is normal sinus rhythm without ischemic changes. Troponin is less than 6 x 2 ruling out ACS. CBC and BMP overall are unremarkable. D-dimer is elevated and follow up CTA shows no PE or other abnormality. I prescribed omeprazole discussed dietary changes in case this is related to acid reflux. I recommended follow-up with her primary care doctor and discussed return precautions. She was discharged in stable condition. History & Record Review Discussion w/independent historian: Patient Additional record(s) reviewed:: Prior ED visit and Prior labs Lab Data Attestation: I reviewed the patient's lab results. Labs: Laboratory Results - last 24 hr 09/25/24 09/25/24 09/25/24 16:40 18:41 19:43 WBC 11.1 H RBC 4.80 Hgb 12.2 Hct 39.0 MCV 81.3 MCH 25.4 L MCHC 31.3 L RDW Std Deviation 39.8 RDW Coeff of Jd 13.5 Plt Count 268 MPV 10.1 Immature Gran % (Auto) 0.300 Neut % (Auto) 59.9 Lymph % (Auto) 31.3 Morrill % (Auto) 6.2 Eos % (Auto) 1.9 Baso % (Auto) 0.4 Absolute Neuts (auto) 6.7 Absolute Lymphs (auto) 3.48 Nucleated RBC % 0 D-Dimer Quant (PE/DVT) Cancelled 0.79 H* Sodium 133 Potassium 5.0 Chloride 101 Carbon Dioxide 17.3 L Anion Gap 15 BUN 13 Creatinine 0.91 Estim Creat Clear Calc 102.10 Est GFR (MDRD) Non-Af 87 BUN/Creatinine Ratio 14.0 Glucose 92 Calcium 9.4 Troponin T High Sens < 6 Troponin T Hi Sens 2 Hr < 6 Radiography Diagnostic Testing: Clinical Impression(s) from Imaging Studies Chest X-Ray 09/25/24 17:10 IMPRESSION: 1. No acute cardiopulmonary abnormality. 2. Questionable nodular opacity measuring 2.0 cm over the posterior right 9th rib, possibly artifactual. Consider PA and lateral chest radiographs for further evaluation. Reading Location: [id number] Chest CTA 09/25/24 21:25 IMPRESSION: 1. No pulmonary embolism or acute cardiopulmonary abnormality. 2. Questionable nodular opacity on same day radiographs was artifactual. Reading Location: [id number] ED attending interpretation 1 view chest x-ray is limited but there is normal heart size and no acute infiltrate. EKG Initial EKG: Attestation: I personally reviewed and interpreted this EKG as follows: Interpretation: Sinus Rhythm and No Acute Injury Pattern Comments: Normal sinus rhythm 82 bpm Normal intervals, no acute ischemic changes <Dr. Tobin Madrid, DO - Last Filed: 09/26/24 00:10> [facility] MDM Narrative Medical decision making narrative: Differential includes but not limited to GERD, ACS, PE 28-year-old female presents with chest pain. This started at rest this afternoon. She had nausea this morning but no vomiting. No abdominal pain. She appears well and nontoxic. Vital stable. She has a normal cardiopulmonary exam. Abdomen is soft, nontender. Cardiac workup was ordered. She is also describing her pain as indigestion so she was given a GI cocktail, Toradol, Zofran and aspirin. EKG is normal sinus rhythm without ischemic changes. Troponin is less than 6 x 2 ruling out ACS. CBC and BMP overall are unremarkable. D-dimer is elevated and follow up CTA shows no PE or other abnormality. I prescribed omeprazole discussed dietary changes in case this is related to acid reflux. I recommended follow-up with her primary care doctor and discussed return precautions. She was discharged in stable condition. Supervisory Physician Note Patient was seen and examined with the Advanced Practice Provider. Nursing notes and vital signs have been reviewed. Pertinent old records have been reviewed. I agree with the essential elements of the LIZZETTE's history, physical exam, assessment, and plan. The differential diagnosis and management options were discussed with the LIZZETTE. I participated in determining and agree with the management, procedures, final impression and disposition as documented. See changes noted by me. Please see addendum or separate note for any additional details. 28-year-old female with past medical history of ASD repair at 7 years old, sinus node tachycardia status post ablation presents for evaluation of chest pain. Developed midsternal chest pain at approximately 1:30 PM. Described it as heavy like indigestion but also occasionally sharp. States she was occasionally short of breath but currently denies it now. Denies any URI symptoms. Denies any tobacco abuse. No history of PE/DVT. Gen: A&O x3, NAD Head: Normocephalic, atraumatic Eyes: No sclera icterus, conjunctiva clear ENT: Moist mucous membranes Neck: Trachea midline, No JVD CV: RRR, no murmurs, no peripheral edema Resp: Lungs CTA BL, no w/r/c GI: Abd soft, non-distended, non-tender, no r/r/g Musc: Full ROM, no deformity Skin: Warm, dry Neuro: Alert, oriented, grossly intact, sensation intact Psych: Cooperative, appropriate mood and affect GI cocktail, aspirin, Toradol, Zofran ordered for symptoms. Cardiac workup ordered. EKG and chest x-ray were personally reviewed and interpreted by me, ED physician. CBC with mild leukocytosis 11.1. No anemia. BMP relatively unremarkable. Troponin unremarkable x 2. There is difficulty in obtaining the patient's D-dimer. D-dimer was eventually obtained and elevated at 0.79. Although I have a low suspicion for PE cannot rule this out given elevated D- dimer. CTA of the chest ordered. CTA of the chest negative for PE. Questionable nodule opacity on the x-ray was artifactual. At this point in time, no clear etiology to explain patient's chest pain. Given her unremarkable cardiac workup with low heart score, low suspicion for ACS. Symptoms may be secondary to GERD as patient states that it felt like acid reflux. Placed on omeprazole. Follow-up with PCP. Patient discharged home. Impression: 1. Chest Pain Lab Data Labs: Laboratory Results - last 24 hr 09/25/24 09/25/24 09/25/24 16:40 18:41 19:43 WBC 11.1 H RBC 4.80 Hgb 12.2 Hct 39.0 MCV 81.3 MCH 25.4 L MCHC 31.3 L RDW Std Deviation 39.8 RDW Coeff of Jd 13.5 Plt Count 268 MPV 10.1 Immature Gran % (Auto) 0.300 Neut % (Auto) 59.9 Lymph % (Auto) 31.3 Morrill % (Auto) 6.2 Eos % (Auto) 1.9 Baso % (Auto) 0.4 Absolute Neuts (auto) 6.7 Absolute Lymphs (auto) 3.48 Nucleated RBC % 0 D-Dimer Quant (PE/DVT) Cancelled 0.79 H* Sodium 133 Potassium 5.0 Chloride 101 Carbon Dioxide 17.3 L Anion Gap 15 BUN 13 Creatinine 0.91 Estim Creat Clear Calc 102.10 Est GFR (MDRD) Non-Af 87 BUN/Creatinine Ratio 14.0 Glucose 92 Calcium 9.4 Troponin T High Sens < 6 Troponin T Hi Sens 2 Hr < 6 Radiography Diagnostic Testing: Clinical Impression(s) from Imaging Studies Chest X-Ray 09/25/24 17:10 IMPRESSION: 1. No acute cardiopulmonary abnormality. 2. Questionable nodular opacity measuring 2.0 cm over the posterior right 9th rib, possibly artifactual. Consider PA and lateral chest radiographs for further evaluation. Reading Location: [facility] Chest CTA 09/25/24 21:25 IMPRESSION: 1. No pulmonary embolism or acute cardiopulmonary abnormality. 2. Questionable nodular opacity on same day radiographs was artifactual. Reading Location: [facility] Discharge Plan Triage Chief Complaint: Chest Pain ED Midlevel Provider: Angela Johnson ED Provider: Tobin Madrid Dx/Rx/DC Orders Clinical Impression: Chest pain Instructions: ED Chest Pain, Noncardiac Prescriptions: New omeprazole 40 mg capsule,delayed release(DR/EC) 40 mg PO DAILY 14 Days Qty: 14 0RF No Action Zyrtec 10 mg capsule 10 mg PO DAILY PRN dicyclomine 10 mg capsule 10 mg PO ONCE buspirone 5 mg tablet 5 mg PO DAILY propranolol 10 mg tablet 10 mg PO BID escitalopram oxalate [Lexapro] 10 mg tablet 10 mg PO QDAY prazosin 2 mg capsule 2 mg PO BID fluconazole 150 mg tablet 150 mg PO ONCE Qty: 1 0RF Primary Care Provider: Ji Rouse Referrals: Ji Rouse MD [Primary Care Provider] - Activity Restrictions/Additional Instructions: Your testing for the heart attacks and blood clots. I prescribed omeprazole to treat acid reflux in case your pain is heartburn related. Follow-up with your primary care doctor for further testing or return to the ER if symptoms worsen. Print Language: Amharic Disposition Disposition: Home, Self Care Discharge Date/Time: 09/25/24 22:17
[2024-09-25] MEDS: Lidocaine 2% Viscous15 ML UDC 15 ML PO (17:28)
[2024-09-25 17:50] LABS: Anion Gap 15 (5-15); BUN 13 mg/dL (4-19); BUN/Creat Ratio 14.0 RATIO (10-20); Calcium,Total 9.4 mg/dL (7.6-11.0); Carbon Dioxide 17.3 mmol/L (21.0-32.0); Chloride 101 mmol/L (98-108); Estimated Creatinine Clearance 102.10 ml/min (50-250); Glucose 92 mg/dL (70-99); Potassium 5.0 mmol/L (3.3-5.1); Troponin T High Sensitivity < 6 ng/L (<=14)
[2024-09-25] MEDS: Famotidine 200 MG/20 ML MDV 20 MG in 0.9% Normal Saline (Pres. free 8 ML 300 MG IV (19:09)
[2024-09-25 20:08] LABS: Troponin T High Sens 2 HR < 6 ng/L (<=14)
[2024-09-25] MEDS: 0.9% Normal Saline (1000mL) 1,000 ML 999 ML IV (20:23)
[2024-09-25 21:04] LABS: D-Dimer Quantitative (DVT/PE) 0.79 FEU/ug/m (0.27-0.49)
--- NOTE | 2024-09-25 21:25 | CT_ITS ---
PROCEDURE: CTA CHEST W/WO CONTRAST 09/25/2024 REASON FOR EXAM: CHEST PAIN TECHNIQUE: CTA CHEST W/WO CONTRAST Multiplanar Sagittal and Coronal images were obtained. 3D post processing was performed One or more dose reduction techniques were used (e.g., Automated exposure control, adjustment of the mA and/or kV according to patient size, use of iterative reconstruction technique). RADIATION DOSE SUMMARY: CTDlvol: 15.5 mGy DLP: 528 mGycm COMPARISON: Chest radiograph 09/25/2024 FINDINGS: Hardware: Cardiac monitoring device in the left chest wall. Lymph nodes: No thoracic lymphadenopathy. Trace thymic tissue. Heart: No cardiomegaly or coronary calcification. Thoracic Aorta: No thoracic aortic aneurysm or dissection. Pulmonary Vessels: No evidence of acute pulmonary emboli through the major subsegmental branches. Lungs and Airways: The lungs are normally expanded and clear. Pleura: No pleural effusion. No pneumothorax. Upper Abdomen: Visualized portions of the upper abdominal viscera are unremarkable. Bones: Bone windows are unremarkable. CT/CTA Chest W/WO Contrast IMPRESSION: 1. No pulmonary embolism or acute cardiopulmonary abnormality. 2. Questionable nodular opacity on same day radiographs was artifactual. Reading Location: [id number]
== END 2024-09-25 22:17 | disposition home or self-care (01) ==
PROVIDERS: Emergency Provider Surgery; PCP Family Medicine; Visit Provider Surgery
DX: R07.89 Other chest pain (principal); R11.0 Nausea; R51.9 Headache, unspecified; F41.9 Anxiety disorder, unspecified; Z87.74 Personal history of (corrected) congenital malformations of heart and circulatory system; Z98.890 Other specified postprocedural states
CPT/HCPCS: 71045; 71275; 80048; 84484; 85025; 85379; 93005; 96361; 96374; 96375; 99284; Q9967; A4216; J2405

== ENCOUNTER 2024-09-28 00:30 | Emergency (ER) | payer OTHER, SELFPAY ==
[2024-09-28 00:31] VITALS: BP 124/76; PULSE 72; RESP 18; TEMP 36.6; O2SAT 100; BMI 40.6
--- NOTE | 2024-09-28 00:53 | EDS_ITS ---
HPI HPI - GI History of Present Illness Chief Complaint: Abd Pain Informant: patient Narrative Narrative: 28-year-old female has been having right upper quadrant pain radiating into her right low-mid back since earlier, has been colicky, severe at times, associated with nausea and vomiting x 3 no blood, and it started 2 or 3 hours after eating a meal with steak. No history of any abdominal surgeries in the past. No fevers or chills. No confusion. PFSH PFSH Medical History (Updated 09/28/24 @ 02:[address] Andrea Méndez MD) Supraventricular tachycardia BMI 37.0-37.9, adult Other obesity At high risk for breast cancer Generalized anxiety disorder PTSD (post-traumatic stress disorder) Rheumatoid arthritis Anxiety and depression Home Medications ?Medication ?Instructions ?Recorded ?Last Taken ?Type dicyclomine 10 mg capsule 10 mg PO ONCE 04/27/22 Unkno wn History escitalopram oxalate 10 mg tablet 10 mg PO QDAY Unknown History (Lexapro) propranolol 10 mg tablet 10 mg PO BID 04/16/24 Unknow n History omeprazole 40 mg capsule,delayed 40 mg PO DAILY 14 day s #14 caps 09/25/24 Unknown Rx release Allergy/AdvReac Type Severity Reaction Status Date / Time Penicillins Allergy Hives Verified 09/28/24 00:31 Family History (System 09/18/24 @ 05:36 by Mimi Gustafson) Other Breast cancer Surgical History History of total vaginal hysterectomy (TVH) History of open heart surgery History of tubal ligation Social History household members: spouse housing: house number of children: 2 current occupational status: employed and unemployed current occupation: [employer] current occupational exposures/hazards: No pets and animals: Yes history of recent travel: No Smoking Status: Never smoker second hand exposure: No alcohol intake: current alcohol intake frequency: holidays/special occasions only Alcohol type: beer substance use type: does not use caffeine: No what type of physical activity do you participate in: walking frequency: 5-6 times per week duration: 45-60 minutes/day seatbelt use: always do you feel safe at home: Yes additional social history: [employer] at [facility] ED Constitutional Constitutional ED: Denies chills or fever(s) Eyes Eyes: Denies change in vision or diplopia ENT ENT ED: Denies rhinorrhea or sore throat Cardiovascular Cardiovascular: Denies chest pain or palpitations Respiratory/Chest Respiratory/Chest: Denies cough or dyspnea Gastrointestinal Gastrointestinal: Reports abdominal pain, nausea and vomiting; Denies diarrhea Genitourinary Genitourinary ED: Denies dysuria or hematuria Musculoskeletal Musculoskeletal: Reports back pain; Denies neck pain Integumentary Denies abscess or rash Neurologic Neurologic: Denies headache(s), paresthesias or weakness Psychiatric Psychiatric: Denies suicidal thoughts EXAM Physical Exam Const Vital Signs: 09/28/24 00:31 09/28/24 02:30 09/28/24 02:42 Temperature 97.9 F 97.9 F Temperature Source Oral Pulse Rate 72 65 65 Respiratory Rate 18 16 16 Blood Pressure 124/76 H 119/60 119/60 Blood Pressure Mean 92 79 79 Pulse Ox 100 98 98 Oxygen Delivery Method Room Air Room Air Positive well nourished and well developed General Appearance ED: well developed and NAD HEENT Reports moist mucous membranes normocephalic and atraumatic Eyes PERRL and EOMs intact bilaterally Neck full ROM and supple Resp normal respiratory effort and clear to auscultation bilaterally Cardio regular rate, regular rhythm and no murmurs GI non-distended GI Narrative: Significant right upper quadrant tenderness with Johnston sign, otherwise benign abdomen. Auscultation: normoactive bowel sounds Palpation: soft Back/Spine no CVA tenderness General Back: other FROM Extremity normal to inspection General Extremety ED: Negative for edema, pulses abnormal or tenderness General Extremity: Negative for edema or pulses abnormal Neuro oriented x3, CN's II-XII intact bilaterally and no sensory deficits noted Sensorium / Orientation: awake and alert Motor Exam: strength 5/5 throughout Skin no rashes or lesions noted and no wounds MDM MDM MDM Narrative Medical decision making narrative: The colicky nature and location of this pain is concerning for biliary colic. In order to evaluate for acute cholecystitis, pancreatitis, labs were obtained as well as a to rule out ectopic which was negative. Urine is unremarkable, liver enzymes negative, no leukocytosis lipase normal, ruling out most of these issues. 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 I did a bedside ultrasound after giving her Toradol and Zofran which helped temporarily, but she was still having then some more pain. Her gallbladder looks contracted, and it is up under her ribs, limiting my evaluation of the right now. I do not see obvious stones but again it is a jason ited study. She was given morphine and it helped a lot, she is asking for a little bit more nausea medication and to go home, I am going to set her up for an outpatient ultrasound, we discussed reasons to return including intractable symptoms or fevers or jaundice and she is comfortable with that plan. Lab Data Attestation: I reviewed the patient's lab results. Labs: Laboratory Results - last 24 hr 09/28/24 09/28/24 00:55 01:00 WBC 9.1 RBC 4.34 Hgb 11.1 L Hct 34.1 L MCV 78.6 L MCH 25.6 L MCHC 32.6 RDW Std Deviation 37.8 RDW Coeff of Jd 13.2 Plt Count 319 MPV 8.7 Immature Gran % (Auto) 0.200 Neut % (Auto) 54.5 Lymph % (Auto) 34.2 [place] % (Auto) 8.4 Eos % (Auto) 2.4 Baso % (Auto) 0.3 Absolute Neuts (auto) 4.9 Absolute Lymphs (auto) 3.10 Nucleated RBC % 0 Sodium 138 Potassium 4.2 Chloride 103 Carbon Dioxide 24.1 Anion Gap 11 BUN 14 Creatinine 0.96 Estim Creat Clear Calc 96.07 Est GFR (MDRD) Non-Af 83 BUN/Creatinine Ratio 14.2 Glucose 105 H Calcium 9.3 Total Bilirubin < 0.15 AST 15 ALT 15 Alkaline Phosphatase 94 Total Protein 7.0 Albumin 4.1 Globulin 2.9 Albumin/Globulin Ratio 1.4 Lipase 30 Serum , Qual NEGATIVE Urine Color Yellow Urine Clarity Clear Urine pH 5.0 Ur Specific [place] 1.030 Urine Protein 30 H Urine Glucose (UA) 50 H Urine Ketones Negative Urine Occult Blood Negative Urine Nitrite Negative Urine Bilirubin Negative Urine Urobilinogen Normal Ur Leukocyte Esterase Negative Urine RBC 0 SEEN Urine WBC 0 SEEN Ur Squamous Epith Cells 0 SEEN Urine Bacteria 1+ Urine Mucus RARE Discharge Plan Triage Chief Complaint: Abd Pain ED Provider: Andrea Méndez Dx/Rx/DC Orders Clinical Impression: Colicky RUQ abdominal pain Instructions: ED Abdominal Pain Gallstone Poss Prescriptions: No Action dicyclomine 10 mg capsule 10 mg PO ONCE propranolol 10 mg tablet 10 mg PO BID escitalopram oxalate [Lexapro] 10 mg tablet 10 mg PO QDAY omeprazole 40 mg capsule,delayed release(DR/EC) 40 mg PO DAILY 14 Days Qty: 14 0RF Other Ambulatory Orders: Gallbladder (Routine) Facility: [facility] - Location: [facility] Ordered By: Dr. Andrea Méndez Primary Care Provider: Ji Rouse Referrals: Ji Rouse MD [Primary Care Provider] - As soon as possible (To be seen after you have your ultrasound) Print Language: Romanian Disposition Disposition: Home, Self Care
[2024-09-28 01:04] LABS: Red Blood Cells-Urine 0 SEEN /hpf (0-5); Squamous Epithelial Cells - UA 0 SEEN /hpf (5-10)
[2024-09-28 01:05] LABS: Hematocrit 34.1 % (37-47); Hemoglobin 11.1 g/dL (12.0-15.0); Immature Granulocytes Count 0.020 X10^3/uL (0.0-0.0); Mean Corp Hgb Conc 32.6 g/dL (32-36); Mean Corpuscular Volume 78.6 fL (81-99); Mean Platelet Vol. 8.7 fl (6.2-12.0); NRBC Flagged by Analyzer 0 % (0-5); Platelet Count 319 K/mm3 (150-450); RBC Distribution Width CV 13.2 % (11.6-14.6); RBC Distribution Width SD 37.8 fl (35.1-43.9); Red Blood Count 4.34 M/mm3 (4.2-5.4); White Blood Count 9.1 K/mm3 (4.4-11.0)
[2024-09-28] MEDS: Ketorolac 30 MG/ML Syringe IV (01:05)
[2024-09-28 01:06] LABS: Color, Urine Yellow (Yellow); Glucose, Dipstick 50 mg/dl (Normal); Ketone-Dipstick Negative (Negative); Leukocyte Esterase-Dipstick Negative /ul (Negative); Nitrite-Dipstick Negative (Negative); Occult Blood-Urine Negative /ul (Negative); Protein-Dipstick 30 mg/dl (Negative); Specific Gravity, Urine 1.030 (1.002-1.030); Urine Bilirubin Dipstick Negative (Negative)
[2024-09-28 01:16] LABS: Mucous, Urine RARE /hpf (<or=2+)
[2024-09-28 01:19] LABS: Internal QC Validated? YES +Cl - CLEAR BKGD; Pregnancy, Serum, hCG Quali. NEGATIVE Negative; Record Kit Lot#, Serum Preg. 0000962302
[2024-09-28 01:34] LABS: AST(SGOT) 15 U/L (<=31); Alanine Aminotransfer ALT/SGPT 15 U/L (<=34); Albumin, Serum 4.1 g/dL (3.5-5.0); Alkaline Phosphatase 94 U/L (35-104); Anion Gap 11 (5-15); BUN 14 mg/dL (4-19); BUN/Creat Ratio 14.2 RATIO (10-20); Calcium,Total 9.3 mg/dL (7.6-11.0); Carbon Dioxide 24.1 mmol/L (21.0-32.0); Chloride 103 mmol/L (98-108); Estimated Creatinine Clearance 96.07 ml/min (50-250); Globulin 2.9 g/dL (2.2-4.2); Glucose 105 mg/dL (70-99); Lipase 30 U/L (13-75); Potassium 4.2 mmol/L (3.3-5.1)
[2024-09-28 02:30] VITALS: BP 119/60; PULSE 65; RESP 16; O2SAT 98
[2024-09-28 02:42] VITALS: BP 119/60; PULSE 65; RESP 16; TEMP 36.6; O2SAT 98
== END 2024-09-28 02:54 | disposition home or self-care (01) ==
PROVIDERS: Emergency Provider Emergency Medicine; PCP Family Medicine; Visit Provider Emergency Medicine
DX: R10.11 Right upper quadrant pain (principal); M06.9 Rheumatoid arthritis, unspecified; R11.2 Nausea with vomiting, unspecified; F41.1 Generalized anxiety disorder; F32.A Depression, unspecified; F43.10 Post-traumatic stress disorder, unspecified; E66.9 Obesity, unspecified; Z68.37 Body mass index [BMI] 37.0-37.9, adult; Z90.710 Acquired absence of both cervix and uterus; Z79.899 Other long term (current) drug therapy
CPT/HCPCS: 80053; 81001; 83690; 84703; 85025; 96374; 96375; 99284; A4216; J2405

== ENCOUNTER 2024-10-16 09:53 | Day surgery (SDC) | payer OTHER, SELFPAY ==
--- NOTE | 2024-10-10 18:39 | PAT.ANESEVAL ---
Pre-Assessment Diagnosis/Proposed Procedure Planned Operative Procedure(s): LAP ZENIA WITH IOC Anesthesia History Anesthesia History - successfactors consultant: Anesthesia History - successfactors consultant Hx Hospitalization No 10/09/24 10:41 Any Problems With Anesthesia No 10/09/24 10:41 Cholinesterase deficiency No 10/09/24 10:41 You/Your Family Experience No 10/09/24 10:41 fever (hyperthermia) with Relationship Recent Exposure to Contagious Disease Does patient have nerve No 10/09/24 10:41 stimulator Patient instructed to have device shut off --Does patient have Pacemaker or ICD? When Was Last Pacemaker Check QUESTION #4 FULL TEXT: You/Your Family Experience fever (hyperthermia) with Anesthesia Last Oral Intake Last Oral intake: Last Oral Intake NPO since Meds taken in AM with sips of water? Meds patient instructed to take am of surgery PONV PONV - successfactors consultant: PONV - successfactors consultant Female Yes 10/09/24 10:41 HX of Motion Sickness Yes 10/09/24 10:41 HX of N/V After Surgery Yes 10/09/24 10:41 Non-Smoker Yes 10/09/24 10:41 Duration of Surgery greater Yes 10/09/24 10:41 than 60 minutes Number of Risk Factors 5 10/09/24 10:41 PONV Score Severe Risk 10/09/24 10:41 Height & Weight Height & Weight: Anesthesia: Height & Weight Height 5 ft 2 in 10/01/24 14:46 Respiratory Assessment Respiratory Assessment - successfactors consultant: Respiratory Tract Infection Hx - successfactors consultant Hx Respiratory Tract Infection No 10/09/24 10:41 STOP Sleep Apnea STOP Sleep Apnea - successfactors consultant: STOP Sleep Apnea - successfactors consultant Hx Hypertension No 10/09/24 10:41 Hx Sleep Apnea No 10/09/24 10:41 CPAP BIPAP Do you snore loudly (louder No 10/09/24 10:41 than talking or can be heard Do you often feel tired/ No 10/09/24 10:41 fatigued/ sleepy during daytime? Has anyone observed you stop No 10/09/24 10:41 breathing during sleep? STOP Results Negative 10/09/24 10:41 QUESTION #5 FULL TEXT : Do you snore loudly (louder than talking or can be heard through closed doors)? 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 Specify any problems Hx of Preganancy in last 3 N/A 10/09/24 10:41 Months Nurse Filling Out Transfusion NBUCHER 10/09/24 10:41 & Questions: Date: 10/09/24 10/09/24 10:41 Time: 10:43 10/09/24 10:41 Patient unable to answer at this time (ie. confused, unrespo /Reproduction History /Reproductive History - successfactors consultant: /Reproductive Hx- successfactors consultant Hx Now No 10/09/24 10:41 Gestational Age (in weeks): EDC: Hx Hx Para Hx Section SAB No 10/09/24 10:41 [facility] Medical History (Updated 10/09/24 @ 10:50 by Jacquelin Pereira) Wears glasses History of Clostridium difficile infection Depression Anxiety Anemia Migraine headache Vasovagal syncope Non-smoker History of echocardiogram History of stress test Cardiology follow-up encounter Generalized anxiety disorder PTSD (post-traumatic stress disorder) Supraventricular tachycardia Rheumatoid arthritis Anxiety and depression BMI 37.0-37.9, adult Other obesity At high risk for breast cancer Home Medications ?Medication ?Instructions ?Recorded ?Last Taken ?Type dicyclomine 10 mg capsule 10 mg PO ONCE PRN abdominal pain 04/27/22 Unknown History escitalopram oxalate 10 mg tablet 10 mg PO QHS 04/16/24 Unknown History (Lexapro) propranolol 10 mg tablet 10 mg PO QHS PRN anxiety 04/16/24 Unknown History omeprazole 40 mg capsule,delayed 40 mg PO DAILY 14 days #14 caps 09/25/24 Unknown Rx release sucralfate 1 gram tablet (Carafate) 1 g PO QACHS 10/01/24 Unknown History Allergy/AdvReac Type Severity Reaction Status Date / Time Penicillins Allergy Hives Verified 10/09/24 10:38 Family History (System 09/18/24 @ 05:36 by Mimi Gustafson) Other Breast cancer Surgical History (Updated 10/09/24 @ 10:50 by Jacquelin Pereira) History of tonsillectomy and adenoidectomy History of cardiac radiofrequency ablation History of total vaginal hysterectomy (TVH) History of open heart surgery History of tubal ligation Social History household members: spouse housing: house number of children: 2 current occupational status: employed and unemployed current occupation: [employer] current occupational exposures/hazards: No pets and animals: Yes history of recent travel: No Smoking Status: Never smoker second hand exposure: No alcohol intake: current alcohol intake frequency: holidays/special occasions only Alcohol type: beer substance use type: does not use caffeine: No what type of physical activity do you participate in: walking frequency: 5-6 times per week duration: 45-60 minutes/day seatbelt use: always do you feel safe at home: Yes additional social history: [employer] at [employer]: Pertinent Findings Pertinent Findings EKG Perinent findings: September 25, 2024. Normal sinus rhythm. Echo (EF%) pertinent findings: October 28, 2021. LVEF is 50%. No hemodynamically significant valvular disease. No evidence of residual intracardiac shunting by Doppler at the atrial level. (Patient is status post ASD repair) Consult pertinent findings: July 06, 2023. Dr. Parisi?cardiology. 1. Syncope-will get a tilt table test to test for POTS as well as vasovagal syncope. Discussed identifying triggers and minimizing risk of falls and injury. 2. Inappropriate sinus tachycardia-discussed options including ablation and pacemaker though these are not currently recommended at this stage of symptoms. Check Holter. (See below) 3. Palpitations?check Holter. (See below) Additional pertinent findings: Holter monitor. 07/06/2023. Predominant rhythm is sinus rhythm. Frequent sinus tachycardia (67%). Maximal heart rate is 150 bpm. Average heart rate is 106 bpm. No symptoms noted on diary. Recommendation Anesthesia Recommendation Anesthesia recommendation: OPTIMIZED for anesthesia
[2024-10-16] VITALS (12 sets, daily range): BP systolic 122–146; BP diastolic 66–85; PULSE 70–94; RESP 16–20; TEMP 36.2–36.7; O2SAT 95–100; BMI 40.3
--- NOTE | 2024-10-16 10:05 | EKG12_ITS ---
Test Reason : PRE OP Blood Pressure : */* mmHG Vent. Rate : 67 BPM Atrial Rate : 67 BPM P-R Int : 130 ms QRS Dur : 82 ms QT Int : 412 ms P-R-T Axes : 47 29 66 degrees QTcB Int : 435 ms Normal sinus rhythm with sinus arrhythmia Normal ECG When compared with ECG of 25-Sep-2024 16:26, No significant change was found Confirmed by AMADO GRIFFIN, JUSTIN ([id number]), department editor ELIE MARIE ([id number]) on 10/20/2024 12:59:39 PM Referred By: Miriam Falk Confirmed By: JUSTIN FISCHER MD
[2024-10-16] MEDS: Lactated Ringers 1,000 ML 15 ML IV (10:25)
[2024-10-16] MEDS: INDOCYANINE GREEN 3.75 MG in Syringe 1.5 ML 999 MG IV (10:30)
--- NOTE | 2024-10-16 11:11 | PRE.ANES_ITS ---
ASA Classification* ASA Classification ASA Classification: 3 Assessment & Plan Anesthesia* Anesthesia Assessment Anesthesia Assessment: Discussed sedation and/or anesthesia options, risks, benefits, and alternatives with patient/parents/legal guardian/POA. Questions invited. The patient/parents/legal guardian/POA seems to understand and agrees to proceed with anesthesia plan. Reviewed the physical assessment, medical history, allergy history and patient home medications list prior to surgery/procedure/anesthetic and documented any changes. Performed airway and anesthesia risk assessments. Anesthesia Type Anesthesia Type: General (glide scope ) Anesthesia Focused Assessment* Temperature: 98.1 F Pulse Rate: 75 Blood Pressure: 124/75 Respiratory Rate: 18 Pulse Ox: 100 Airway Assessment Mouth opens: >3 cm Mallampati Score: II Labs Anesthesia Preop lab: CBC WBC 9.1 K/mm3 (4.4-11.0) 09/28/24 00:09/28/24 RBC 4.34 M/mm3 (4.2-5.4) 09/28/24 00:09/28/24 Hgb 11.1 g/dL (12.0-15.0) L 09/28/24 00:55 5 Hct 34.1 % (37-47) L 09/28/24 00:55 09/28/24 Plt Count 319 K/mm3 (150-450) 09/28/24 00:55 09/28/24 CHEMISTRY Potassium 4.2 mmol/L (3.3-5.1) 09/28/24 00:09/28/24 Sodium 138 mmol/L (133-145) 09/28/24 00:55 09/28/24 BUN 14 mg/dL (4-19) 09/28/24 00:55 09/28/24 Creatinine 0.96 mg/dL (0.70-1.20) 09/28/24 00:09/28/24 Glucose 105 mg/dL (70-99) H 09/28/24 00:55 09/28/24 POC Glucose 125 mg/dL (70-110) H 11/14/18 15:29 11/14/18 TSH 0.91 uIU/mL (0.358-3.74) 09/01/22 07:17 COAG Urine Test Negative Negative 11/14/18 12:21 11/14/18 Tst Clinic Negative 09/04/18 15:58 09/04/18 Pre-Assessment Diagnosis/Proposed Procedure Planned Operative Procedure(s): LAP ZENIA WITH IOC Anesthesia History 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 When Was Last Pacemaker Check QUESTION #4 FULL TEXT: You/Your Family Experience fever (hyperthermia) with Anesthesia Last Oral Intake Last Oral intake: Last Oral Intake NPO since 22:30 10/16/24 10:30 Meds taken in AM with sips of No 10/16/24 10:30 water? Meds patient instructed to take am of surgery PONV PONV - steamfitter supervisor: PONV - steamfitter supervisor Female Yes 10/09/24 10:41 HX of Motion Sickness Yes 10/09/24 10:41 HX of N/V After Surgery Yes 10/09/24 10:41 Non-Smoker Yes 10/09/24 10:41 Duration of Surgery greater Yes 10/09/24 10:41 than 60 minutes Number of Risk Factors 5 10/09/24 10:41 PONV Score Severe Risk 10/09/24 10:41 Height & Weight Height & Weight: Anesthesia: Height & Weight Height 5 ft 2 in 10/16/24 10:30 Weight: 100 kg 10/16/24 10:30 Body Mass Index (BMI) 40.3 10/16/24 10:30 Respiratory Assessment Respiratory Assessment - steamfitter supervisor: Respiratory Tract Infection Hx - steamfitter supervisor Hx Respiratory Tract Infection No 10/09/24 10:41 STOP Sleep Apnea STOP Sleep Apnea - steamfitter supervisor: STOP Sleep Apnea - steamfitter supervisor Hx Hypertension No 10/09/24 10:41 Hx Sleep Apnea No 10/09/24 10:41 CPAP BIPAP Do you snore loudly (louder No 10/09/24 10:41 than talking or can be heard Do you often feel tired/ No 10/09/24 10:41 fatigued/ sleepy during daytime? Has anyone observed you stop No 10/09/24 10:41 breathing during sleep? STOP Results Negative 10/09/24 10:41 QUESTION #5 FULL TEXT : Do you snore loudly (louder than talking or can be heard through closed doors)? 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 Specify any problems Hx of Preganancy in last 3 N/A 10/09/24 10:41 Months Nurse Filling Out Transfusion NBUCHER 10/09/24 10:41 & Questions: Date: 10/09/24 10/09/24 10:41 Time: 10:43 10/09/24 10:41 Patient unable to answer at this time (ie. confused, unrespo /Reproduction History /Reproductive History - steamfitter supervisor: /Reproductive Hx- steamfitter supervisor Hx Now No 10/09/24 10:41 Gestational Age (in weeks): EDC: Hx Hx Para Hx Section SAB No 10/09/24 10:41 Active Medications Active Medications: Current Medications Generic Name Dose Route Start Last Admin Trade Name Freq PRN Reason Stop Dose Admin Indocyanine Green 3.75 mg/ N/A 1.5 mls @ 999 mls/hr 10/16/24 11:40 10/16/24 10:30 IV 10/16/24 11:41 999 mls/hr PREOP ONE Administration Ciprofloxacin 400 mg in 200 mls @ 200 mls/hr 10/16/24 12:25 10/16/24 10:35 Cipro IV 10/16/24 13:24 200 mls/hr PREOP ONE Administration Metronidazole 500 mg in 100 mls @ 100 mls/hr 10/16/24 12:25 Flagyl IV 10/16/24 13:24 INTRAOP ONE Lactated Ringer's 1,000 mls @ 15 mls/hr 10/16/24 10:15 10/16/24 10:25 IV 15 mls/hr .Q48H PIEDAD Administration PFSH Medical History Wears glasses History of Clostridium difficile infection Depression Anxiety Anemia Migraine headache Vasovagal syncope Non-smoker History of echocardiogram History of stress test Cardiology follow-up encounter Generalized anxiety disorder PTSD (post-traumatic stress disorder) Supraventricular tachycardia Rheumatoid arthritis Anxiety and depression BMI 37.0-37.9, adult Other obesity At high risk for breast cancer Home Medications ?Medication ?Instructions ?Recorded ?Last Taken ?Type dicyclomine 10 mg capsule 10 mg PO ONCE PRN abdominal pain 04/27/22 Unknown History escitalopram oxalate 10 mg tablet 10 mg PO QHS 5 Unknown History (Lexapro) propranolol 10 mg tablet 10 mg PO QHS PRN anxiety 08/03 Unknown History omeprazole 40 mg capsule,delayed 40 mg PO DAILY 14 day s #14 caps 09/25/24 Unknown Rx release sucralfate 1 gram tablet (Carafate) 1 g PO QACHS 10/01 Unknown History Allergy/AdvReac Type Severity Reaction Status Date / Time Penicillins Allergy Hives Verified 10/16/24 10:37 Family History Other Breast cancer Surgical History History of tonsillectomy and adenoidectomy History of cardiac radiofrequency ablation History of total vaginal hysterectomy (TVH) History of open heart surgery History of tubal ligation Social History household members: spouse housing: house number of children: 2 current occupational status: employed and unemployed current occupation: [employer] current occupational exposures/hazards: No pets and animals: Yes history of recent travel: No Smoking Status: Never smoker second hand exposure: No alcohol intake: current alcohol intake frequency: holidays/special occasions only Alcohol type: beer substance use type: does not use caffeine: No what type of physical activity do you participate in: walking frequency: 5-6 times per week duration: 45-60 minutes/day seatbelt use: always do you feel safe at home: Yes additional social history: [employer] at [employer] Review of Systems (Anesthesia) ROS Narrative System reviewed and no additional complaints, except as documented.
--- NOTE | 2024-10-16 11:19 | PCM.HP.BLA ---
History and Physical Date of Admission: 10/16/24 Date of Service: 10/01/24 MR#: [id number] Acct: [id number] Name: STEVE PINEDA Rep #: [id number] : 1995 Provider: Dr. Miriam Falk MD Age/Sex: 28/F Location: [facility] Status: Signed Intake Vital Signs 09/28/2499:31 10/01/2513:46 Height 5 ft 2 in 5 ft 2 in Weight: 220 lb BMI 40.2 BP 121/77 H Blood Pressure Location Rt brachial Position Sitting Respiration 17 Pulse 78 Pulse Source Monitor Pulse Oximetry (%) 100 Oxygen Delivery Method room air Intake Visit Reasons: RUQ & EPIGASTRIC PAIN Chief Complaint: RUQ/Episgastric pain Is patient in pain?: No Allergies Penicillins Allergy (Verified 10/01/24 14:46) Hives Medications ?Medication ?Instructions ?Recorded ?Confirmed ?Type dicyclomine 10 mg capsule 10 mg PO ONCE 04/27/22 09/28/24 History escitalopram oxalate 10 mg tablet 10 mg PO QDAY 04/16/24 09/28/24 History (Lexapro) propranolol 10 mg tablet 10 mg PO BID 04/16/24 09/28/24 History omeprazole 40 mg capsule,delayed 40 mg PO DAILY 14 days #14 caps 09/25/24 09/28/24 Rx release sucralfate 1 gram tablet (Carafate) 1 g PO QACHS 10/01/24 10/01/24 History PFSH Medical History Supraventricular tachycardia BMI 37.0-37.9, adult Other obesity At high risk for breast cancer Generalized anxiety disorder PTSD (post-traumatic stress disorder) Rheumatoid arthritis Anxiety and depression Surgical History History of total vaginal hysterectomy (TVH) History of open heart surgery History of tubal ligation Family History (System 09/18/24 @ 05:36 by Mimi Gustafson) Other Breast cancer Social History household members: spouse housing: house number of children: 2 current occupational status: employed and unemployed current occupation: [employer] current occupational exposures/hazards: No pets and animals: Yes history of recent travel: No Smoking Status: Never smoker second hand exposure: No alcohol intake: current alcohol intake frequency: holidays/special occasions only Alcohol type: beer substance use type: does not use caffeine: No what type of physical activity do you participate in: walking frequency: 5-6 times per week duration: 45-60 minutes/day seatbelt use: always do you feel safe at home: Yes additional social history: [employer] at [employer] [facility] HPI HPI: 28-year-old female presents due to right upper quadrant and epigastric pain, gallbladder polyp. Patient states that when she was at work on she had a breakfast dropped about 3 hours later started having right upper quadrant epigastric pain and waves of nausea. Patient did not eat much the next day and then again on Sunday about 430 she did have some steak and shrimp and rice and had the episodes again. Patient has been seen at our ER had a CTA that was negative due to the chest pain and also seen in [facility].?Patient had a CT of the abdomen pelvis did not show anything acute patient's ultrasound the gallbladder only showed a 3 mm polyp otherwise the wall is 1 mm, no pericholecystic fluid, negative Johnston sign. Patient was given omeprazole and Carafate but was told to wait to take until she saw as per PCP per patient. Patient states she was able to keep down diet Coke this morning previously had been having nausea and vomiting. Patient states that her mom had her gallbladder removed in her aunts as well however aunts did not have gallstones either in 1 likely had biliary dyskinesia. ROS General General: Yes weight change and fatigue; No appetite, colon cancer or breast cancer HEENT HEENT: No difficulty swallowing, eye injury, eye surgery, swollen glands or hoarseness Endo Endocrine: No thyroid disease, diabetes mellitus, thyroid cancer, Hair loss, heat intolerance or cold intolerance Skin Skin: No rash or changing moles Musc Musculoskeletal: No back problems, arthritis, rheumatoid arthritis, gout or joint pain Cardio Cardiovascular: No murmur, pacemaker, heart disease, atrial fibrillation, high blood pressure, heart attack, heart stent, palpitations, shortness of breath with exertion or chest pain Psych Psychiatric: Yes depression and anxiety; No hearing voices Resp Respiratory: No shortness of breath, No sleep apnea, No cough, No COPD, No asthma, No emphysema and No wheezing Gastro Gastrointestinal: Yes abdominal pain, Yes nausea or vomiting, No diarrhea, No constipation, No blood in stool, No acid reflux, No hemorrhoids, No ulcers, Yes gallbladder problem and No black,tarry stools Abundio Hematologic: No blood thinners, No blood disorders, No bleeding, No anemia and No blood clots Neuro Neurologic: No numbness and No tingling Exam Const General: cooperative, healthy appearing, comfortable and no acute distress [facility] Head: normocephalic and atraumatic Neck Neck: supple Resp Effort & Inspection: normal respiratory effort Cardio Rate: regular rate GI Inspection: non-distended Palpation: soft and tender (Minimal right upper quadrant, no peritoneal signs) Skin General: no rashes or lesions noted Neuro General: CN's II-XI intact bilaterally Extrem General: normal to inspection Psych Mental Status: mental status grossly normal Attitude: cooperative Assessment and Plan Assessment and Plan (1) RUQ pain: Status: Acute (2) Gallbladder polyp: Status: Acute Comment: 3 mm Plan Discussed with patient would recommend taking the Carafate as well as the omeprazole to see if this helps as her pain is not directly after eating. Will have patient follow-up in 1 week discussed that if it is still occurring on the medication, we will consider cholecystectomy at that time but would also still keep her on the medication in the perioperative period. Patient is agreeable plan. Reviewed the anatomy with the patient and discussed the procedure: Robotic/laparoscopic cholecystectomy with possible cholangiograms, possible open. Review risks including but not limited to bleeding, infection, hernia, bile leak, retained gallstones requiring another procedure ERCP- Endoscopic Retrograde Cholangiopancreatography, injury to another organ (bile ducts, common bile duct, small bowel, etc.) and conversion to an open procedure. All questions were answered. Addendum: Patient is still having abdominal discomfort several days after starting the medication we will plan for laparoscopic cholecystectomy. Miriam Falk M.D. Pager: [phone] [facility] [address] [place] [address], [address] [place] [id number] Office: [phone] Coding Level of Care Code Off vis,new,level 3 Diagnoses RUQ pain R10.11 Gallbladder polyp K82.4 10/03/24 0902 <Electronically signed by Miriam Falk MD> Date Miriam Falk MD
[2024-10-16] MEDS: Bupiv/Epi 0.25% 30 ML Vial (11:20)
--- NOTE | 2024-10-16 11:45 | GALL_PTH ---
PATIENT: STEVE PINEDA LOC: [facility] [place] U#:[id number] AGE/SX: 29/F ROOM: RE10/16/[address]: Dr. Miriam Falk MD : 1995 BED: DIS: 10/16/2024 SPEC #: [id number] RECD: 10/16/24 14:27 STATUS: PAKO TONE #: [id number] MARCELO: 10/16/24 11:[address]: Miriam Falk DEPT: SURGICAL PATHOLOGY RECD BY: Raymond Blake ENTERED: 10/16/24 15:08 SP TYPE: JANUSZ WHITESIDE DR: Dr. Ji Rouse MD Tissues: A - Gallbladder, NOS Procedures: Surgery Specimen Level III HEADER OPERATION: Robotic cholecystectomy with ICG PRE-OP DIAGNOSIS: Right upper quadrant pain, gallbladder polyp TISSUE SUBMITTED: A- Gallbladder MICROSCOPIC DIAGNOSIS A. Gallbladder, cholecystectomy: * Cholesterolosis with polyp formation * Chronic cholecystitis * Benign subserosal lymph node MICROSCOPIC DESCRIPTION Slides are reviewed. GROSS DESCRIPTION A. Received in formalin labeled with the patient's name and date of . Designated as gallbladder is a 6.7 x 3.0 x 2.8 cm intact, mildly fatty gallbladder with attached patent cystic duct (inked black, shaved). A lymph node is not present. Opening reveals light green tenacious bile and devoid of choleliths. The mucosa is delgado-pink and granular with a maximum wall thickness of 0.1 cm. There are 3 cholesterol polyps, 0.1 cm to 0.4 cm. Glass Processing Worker sections are submitted in 1 cassette. Smaller cholesterol polyps may not survive processing. IN 10/16/2024 CPT:07591
[2024-10-16] MEDS: Lactated Ringers 1,000 ML 1000 ML IV (12:01)
[2024-10-16] MEDS: Midazolam 2 MG/2 ML Syringe IV (12:01)
[2024-10-16] MEDS: metroNIDAZOLE 500 MG/100 ML BAG 100 MG IV (12:10)
[2024-10-16] MEDS: fentaNYL 100 MCG/2 ML Ampul 200 MCG IV (12:21)
--- NOTE | 2024-10-16 13:35 | PCM.POST.ANE ---
Anesthesia: Postop Eval I Current Vital Signs Temperature: 97.7 F Pulse Rate: 91 Blood Pressure: 145/74 Respiratory Rate: 20 Pulse Ox: 98 Oxygen Delivery Method: Room Air Assessment Airway patent: Yes Spontaneous unlabored respirations: Yes Mental status: Awake and Calm nausea: Yes Vomiting: No Anesthesia Complication: No Fluid Hydration Crystalloid volume administer (ml): 900 Total IV fluid infused: 900 Progress Note Anesthesia document: Postop Eval 1 completed: Yes
--- NOTE | 2024-10-16 13:42 | OP.PCM_ITS ---
Operative Report (Standard) Operative Information Date of Procedure: 10/16/24 Pre-Operative Diagnosis: Gallbladder sludge/polyp, right upper quadrant pain Post-Operative Diagnosis: Same Surgery/Procedure Performed: Robotic cholecystectomy supervisor record press: Yes Environmental Sampling Technician: Georgette Caicedo Tasks completed by first coat operator: Opening & closing Type of Anesthesia: General/Supplemental RN Documented Start/Stop Times: Operation Date: 10/16/24 11:45 Case Time Into Pre-Op 10/16/24 10:04 Out of Pre-Op 10/16/24 12:00 Anesthesia Start 10/16/24 12:01 Into Room 10/16/24 12:01 Procedure Start 10/16/24 12:16 Procedure End 10/16/24 13:25 Anesthesia End 10/16/24 13:30 Out of Room 10/16/24 13:30 Into Recovery 10/16/24 13:31 Out of Recovery 10/16/24 14:51 Into Phase II Recovery 10/16/24 14:52 Out of Phase II 10/16/24 16:01 Procedure Start Time: 12:16 Procedure Stop Time: 13:25 Select all DRAINS/GRAFTS/IMPLANTS that apply: None Special Medications: Cipro 400 mg IV x 1, Flagyl 500 mg IV x 1 Estimated Blood Loss: < 10 Specimen collected: Yes Description of specimen(s) removed: gallbladder Description of surgery: Indications: this is a 29 year-old female male who developed abdominal pain/nausea/vomiting and on workup was found to have gallbladder sludge/polyp, with a normal common bile duct. Laparoscopic cholecystectomy was elected. Description procedure: The patient was placed on operating table in supine position. A timeout was completed verifying correct patient, procedure, site, position and special equipment prior to beginning procedure. General Anesthesia was induced. The abdomen was prepped and draped in usual sterile fashion. An incision was made in the natural skin line below the umbilicus. The fascia was elevated and incised. The peritoneum was elevated and incised. Entry into the peritoneum was confirmed visually and no bowel was noted in the vicinity of the incision. Herrera trocar was placed. The abdomen was insufflated with carbon dioxide to a pressure of 12-15 mmHg. Patient tolerated insufflation well. The laparoscope was then inserted and abdomen inspected. No injuries from initial trocar placement were noted. Additional trochars were then inserted in the following locations 8 mm trocar left upper quadrant and 2 more 8 mm trochars in right lower quadrant and left lower quadrant. The abdomen was inspected no abnormalities were found. The table is placed in reverse Trendelenburg position with the right side up. Robot was docked. The adhesions between the gallbladder and omentum were taken down carefully. The dome of the gallbladder was grasped with atraumatic grasper passed through the lateral port and retracted over the dome of the liver. Infundibulum was then grasped with atraumatic grasper through the midclavicular port and retracted to the right lower quadrant. This maneuver exposed Calot's triangle. The peritoneum overlying the gallbladder infundibulum was then incised and cystic duct and artery identified and circumferentially dissected. ICG was used to visualize the cystic duct. The cystic duct and artery were then doubly clipped and divided close to the gallbladder. The gallbladder then dissected from its peritoneal attachments by electrocautery. Hemostasis was checked and the gallbladder was removed using the endoscopic retrieval bag through the umbilical port. The gallbladder is passed off table as specimen. The gallbladder fossa was irrigated with saline and hemostasis obtained. There is no evidence of bleeding from the gallbladder fossa or cystic artery leakage of bile from the cystic duct stump. Robot was undocked. Secondary trochars removed under direct vision. No bleeding was noted the tro car sites. The laparoscope was withdrawn and umbilical trocar removed. The abdomen was allowed to collapse. The fascia of the 12 mm trocar was closed with a [id number] 0 Vicryl suture. The skin was closed with sutures of 4-0 Monocryl and Steri-Strips. The patient was extubated. The patient tolerated procedure well and was taken to the postanesthesia care unit in stable condition. Surgical Findings: see op note Complications Complications: No
--- NOTE | 2024-10-16 13:42 | EX.PCM.DISCH ---
Discharge Instructions Diet Discharge Diet: Light diet - advance as tolerated Activity Discharge Activity: May Not Drive (while taking narcotic pain medications.) May shower in (days): 1 Lifting Restrictions: no lifting >20 lbs x 2 wks, no strenuous exercise for 4 wks Dressing / Incision Call your doctor if your incision/area has: Continuous Slow Oozing, Sudden Increased Bleeding, Increased Pain/ Swelling, Increased Redness, Foul Smelling Discharge and Swelling at the incision site Call your doctor if you observe: Fever of 101 or Higher Remove Dressing in: 2 days Cleanse incision/area with: Soap & Water Additional Dressing/Incision Instructions:: Keep pressure dressing in place for 24 hours, Steri-Strips will fall off in 7 to 10 days, if they do not fall off okay to remove after 10 days. Follow Up Care Please Follow Up With: Miriam Falk MD When: Call the office for a follow-up appointment 2 weeks; after 5 PM and on the weekends call [phone] with any concerns. Test Results: Test results from this visit will be discussed in further detail at your follow-up appointment, if applicable. Discharge Plan Admission Attending Provider: Miriam Falk Primary Care Provider: Ji Rouse Instructions Additional Instructions / Restrictions: Okay to take ibuprofen 400-600 mg PO q6hr PRN and Tylenol 650 to 1000 mg p.o. every 6 hours as needed along with the oxycodone. Take all pain meds with food. Oxycodone can cause constipation recommend taking daily stool softener (i.e. Colace/docusate) while taking the pain meds. Recommend starting some MiraLAX in 1 to 2 days if no bowel movement. If still no bowel movement the following day recommend taking additional MiraLAX versus magnesium citrate half the bottle and waiting 4-6 hours if still no results take the other half the bottle. Print Language: Nicaraguan Discharge Orders/Prescriptions Prescriptions: New oxycodone 5 mg capsule 5 mg PO Q6H PRN (Reason: pain) 3 Days Qty: 10 0RF Continued dicyclomine 10 mg capsule 10 mg PO ONCE PRN (Reason: abdominal pain) propranolol 10 mg tablet 10 mg PO QHS PRN (Reason: anxiety) escitalopram oxalate [Lexapro] 10 mg tablet 10 mg PO QHS sucralfate [Carafate] 1 gram tablet 1 g PO QACHS omeprazole 40 mg capsule,delayed release(DR/EC) 40 mg PO DAILY 14 Days Qty: 14 0RF Referrals / Follow Up: Ji Rouse MD [Primary Care Provider] - Disposition Disposition (needs filled in before D/C Order can be placed): Home, Self Care
== END 2024-10-16 16:02 | disposition home or self-care (01) ==
LOC: SDC 09:55 → AC 09:56
PROVIDERS: PCP Family Medicine; Referring Provider Surgery; Visit Provider Surgery
PROC: 0FT44ZZ Resection of Gallbladder, Percutaneous Endoscopic Approach (ICD-10-PCS; CPT 47562; principal; 2024-10-16 11:25)
DX: K81.1 Chronic cholecystitis (principal); M06.9 Rheumatoid arthritis, unspecified; E66.89 Other obesity not elsewhere classified; F41.1 Generalized anxiety disorder; Z68.37 Body mass index [BMI] 37.0-37.9, adult; Z79.899 Other long term (current) drug therapy
CPT/HCPCS: 47562; 00790; 88304; 93005; J0744; J2405

== ENCOUNTER → 2024-11-24 | Outpatient (CLI) | payer OTHER, SELFPAY ==
[2024-11-24 13:30] LABS: Follicle Stimulating Hormone 2.2 mIU/mL; Vitamin D,25 Hydroxy 21.4 ng/mL (30-100)
== END | disposition home or self-care (01) ==
PROVIDERS: PCP Family Medicine; Referring Provider Nurse Practitioner Women's Health; Visit Provider Nurse Practitioner Women's Health
DX: R23.2 Flushing (principal); R53.83 Other fatigue
CPT/HCPCS: 36415; 82306; 82670; 83001; 84439; 84443; 86376

== ENCOUNTER → 2024-11-27 | Outpatient (CLI) | payer OTHER, SELFPAY ==
--- NOTE | 2024-11-27 08:11 | US_ITS ---
PROCEDURE: PELVIC W/ TRANSVAGINAL 11/27/2024 REASON FOR EXAM: PAIN Pelvic pain worse on the left side. TECHNIQUE: Procedure Code: USPELTVAG Modality: US Procedure: PELVIC W/ TRANSVAGINAL COMPARISON: None FINDINGS: Measurements: Uterus: Patient is status post hysterectomy. Right Ovary: 3.3 cm x 2.1 cm x 1.9 cm with a volume of 7.2 mL. Left Ovary: 3.2 cm x 1.8 cm x 1.3 cm with a volume of 6.8 mL. Uterus: The uterus is surgically absent. Right ovary: Normal size and echotexture. Left ovary: Normal size and echotexture. Other: No large pelvic mass identified. US/Pelvic w/ Transvaginal IMPRESSION: Status post hysterectomy. The ovaries are unremarkable. Reading Location: [place] [address]
== END | disposition home or self-care (01) ==
LOC: OPUS 08:10
PROVIDERS: PCP Family Medicine; Referring Provider Nurse Practitioner Women's Health; Visit Provider Nurse Practitioner Women's Health
DX: R10.2 Pelvic and perineal pain (principal)
CPT/HCPCS: 76830; 76856

== ENCOUNTER → 2025-01-01 | Outpatient (CLI) | payer OTHER, SELFPAY ==
[2025-01-02 08:09] LABS: PROGESTERONE <0.1 ng/mL (.)
[2025-01-02 16:09] LABS: PROEL- A/G Ratio 1.2 (0.7-1.7); PROEL- Albumin 3.6 g/dL (2.9-4.4); PROEL- Alpha-1 Globulin 0.2 g/dL (0.0-0.4); PROEL- Alpha-2 Globulin 0.7 g/dL (0.4-1.0); PROEL- Beta Globulin 1.1 g/dL (0.7-1.3); PROEL- Gamma Globulin 1.1 g/dL (0.4-1.8); PROEL- Globulin, Total 3.1 g/dL (2.2-3.9); PROEL- TOTAL PROTEIN 6.7 g/dL (6.0-8.5); PROEL-M-Spike Not Observed g/dL (Not Observed)
== END | disposition home or self-care (01) ==
PROVIDERS: PCP Family Medicine
DX: R61 Generalized hyperhidrosis (principal)
CPT/HCPCS: 36415; 84144; 84165

== ENCOUNTER → 2025-02-24 | Outpatient (CLI) | payer OTHER, SELFPAY ==
--- NOTE | 2025-02-24 08:45 | US_ITS ---
PROCEDURE: BREAST LIMITED UNILATERAL 02/24/2025 REASON FOR EXAM: F, Age 29 y/o , BREAST PAIN Left breast pain. Nipple discharge. COMPARISON: Prior mammogram done earlier in the day.. TECHNIQUE: Procedure Code: USBRSTLIMIT Modality: US Procedure: BREAST LIMITED UNILATERAL. The left retroareolar region as well as the lateral aspect of the left breast was examined with ultrasound. FINDINGS: There is a 6 mm x 5 mm x 4 mm cyst at the 2 o'clock position of the left breast at 3 cm from the nipple. There is also evidence of a 7 mm x 9 mm x 5 mm cyst at the 4 o'clock position of the breast at 6 cm from the nipple. There is a 5 mm x 5 mm x 4 mm cyst at the 4 o'clock position of the breast at 6 cm from the nipple. US/Breast Limited Unilateral IMPRESSION: Several cysts are seen in the lateral aspect of the left breast as described. BI-RADS 2: BENIGN RECOMMENDATION: Routine annual follow-up in 1 Year Reading Location: [id number]
--- NOTE | 2025-02-24 09:00 | BI_ITS ---
EXAM: DIAG MAMM W/CAD, BILAT 02/24/2025 CLINICAL HISTORY: F, Age 29 y/o , BREAST PAIN. Left lateral breast pain. Grandmother with breast cancer. Aunt with breast cancer. TECHNIQUE: Procedure Code: [id number] Modality: MG Procedure: DIAG MAMM W/CAD, BILAT. COMPARISON: Prior exam(s) dated prior mammogram dated October 26, 2020.. FINDINGS: TISSUE DENSITY: The breasts are extremely dense, which lowers the sensitivity of mammography. Bilateral Breast Mammographic Findings: No significant masses, calcifications or other abnormalities are identified. A loop recording device is seen in the inferior medial aspect of the left breast. No suspicious masses, areas of developing architectural distortion, or suspicious calcifications. There has been no significant interval change. BI/DIAG MAMM W/CAD, BILAT IMPRESSION: Stable bilateral mammogram. With the patient's history of left lateral breast pain, targeted sonographic correlation recommended. OVERALL FINAL ASSESSMENT BI-RADS 0: INCOMPLETE - NEED ADDITIONAL IMAGING EVALUATION. RECOMMENDATION: Ultrasound Recommended Additional Recommendation none A letter with findings and recommendations will be mailed to the patient. Reading Location: [id number]
== END | disposition home or self-care (01) ==
PROVIDERS: PCP Family Medicine; Referring Provider Advanced Practice Midwife; Visit Provider Advanced Practice Midwife
DX: N64.4 Mastodynia (principal)
CPT/HCPCS: 76642; 77062; 77066; G0279